=== PATIENT | male | born 1950 | race Caucasian/White ===

== ENCOUNTER 2017-03-23 16:57 | Inpatient (IN) | payer MEDICARE, MEDICAID ==
[2017-03-23 16:57] VITALS: BMI 25.8
--- NOTE | 2017-03-23 17:49 | ED PDOC ---
HPI: Chest Pain Time Seen by Provider: 03/23/17 17:10 Chief Complaint (Nursing): Chest Pain Chief Complaint (Provider): Chest pain History Per: Patient History/Exam Limitations: no limitations Onset/Duration Of Symptoms: Hrs (3x hours prior to arrival ) Current Symptoms Are (Timing): Better Severity: Moderate Associated Symptoms: Dyspnea. denies: Nausea Additional Complaint(s): 66 year old male presents to the ED with complaints of chest pain that started 3x hours prior to arrival. He reports that he was walking down the steps today and started feeling chest pain and shortness of breath. He reports that it is resolving upon arrival to the ED, but it is still present. He also reports having a subjective fever, but denies having a headache, cough, sore throat, abdominal pain, nausea, vomiting, and diarrhea. PMD: Marlon Moreira MD Past Medical History Reviewed: Historical Data, Nursing Documentation, Vital Signs Vital Signs: Last Vital Signs Temp 97.9 F 03/24/17 16:30 Pulse 55 L 03/24/17 17:26 Resp 18 03/24/17 16:30 BP 127/73 03/24/17 17:26 Pulse Ox 100 03/24/17 18:25 - Medical History PMH: HTN - Surgical History Surgical History: No Surg Hx - Family History Family History: States: Unknown Family Hx - Social History Current smoker - smoking cessation education provided: No Alcohol: Social Drugs: Denies - Immunization History Hx Tetanus Toxoid Vaccination: No Hx Influenza Vaccination: No Hx Pneumococcal Vaccination: No - Home Medications Home Medications: Ambulatory Orders Medication Instructions Recorded Aspirin [Adult Low Dose Aspirin EC] 81 mg PO DAILY 03/23/17 Cyanocobalamin (Vitamin B-12) 1,000 mcg PO DAILY 03/23/17 [B-12] Enalapril Maleate [Vasotec] 20 mg PO DAILY 03/23/17 Ezetimibe [Zetia] 10 mg PO DAILY 03/23/17 Lovastatin 40 mg PO HS 03/23/17 Metoprolol Tartrate [Lopressor] 50 mg PO BID 03/23/17 amLODIPine [Norvasc] 5 mg PO DAILY 03/23/17 - Allergies Allergies/Adverse Reactions: Allergies Allergy/AdvReac Type Severity Reaction Status Date / Time No Known Allergies Allergy Verified 03/23/17 17:03 Review of Systems ROS Statement: Except As Marked, All Systems Reviewed And Found Negative Constitutional: Positive for: Fever ENT: Negative for: Throat Pain Cardiovascular: Positive for: Chest Pain Respiratory: Positive for: Shortness of Breath. Negative for: Cough Gastrointestinal: Negative for: Nausea, Vomiting, Abdominal Pain, Diarrhea Neurological: Negative for: Headache Physical Exam - Reviewed Nursing Documentation Reviewed: Yes Vital Signs Reviewed: Yes - Physical Exam Appears: Positive for: Well, Non-toxic, No Acute Distress Head Exam: Positive for: ATRAUMATIC, NORMOCEPHALIC Skin: Positive for: Normal Color, Warm, Dry Neck: Positive for: Normal (no stiffness), Supple Cardiovascular/Chest: Positive for: Regular Rate, Rhythm Respiratory: Positive for: Normal Breath Sounds Gastrointestinal/Abdominal: Positive for: Normal Exam, Soft. Negative for: Tenderness Neurologic/Psych: Positive for: Alert, Oriented (3x) - Laboratory Results Result Diagrams: 03/24/17 05:25 03/24/17 05:25 - ECG Interpretation Of ECG: NSR @ 79, no ST-T changes. O2 Sat by Pulse Oximetry: 100 (RA) Pulse Ox Interpretation: Normal - Radiology X-Ray: Read By Radiologist X-Ray Interpretation: No Acute Disease - CT Scan/US CT chest Other Rad Studies (CT/US): Radiology Report Reviewed (No pulmonary embolus. No evidence of acute pulmonary disease. Mild cardiomegaly. ) Medical Decision Making Medical Decision Makin:10 Initial impression: 66 year old male patient with chest pain due to fever Initial plan: * VBG shock panel * EKG * CMP * troponin I * udip * CBC * DDimer coag * PTT * prothrombin time * XRay chest 2 views * tylenol 650mg PO * blood culture * urine culture * influenza AB * urinalysis * reevaluation Scribe Attestation: Documented by Taylor Ospina, acting as a scribe for Mari Mcfarlane MD. Provider Scribe Attestation: All medical record entries made by the Scribe were at my direction and personally dictated by me. I have reviewed the chart and agree that the record accurately reflects my personal performance of the history, physical exam, medical decision making, and the department course for this patient. I have also personally directed, reviewed, and agree with the discharge instructions and disposition. Disposition - Clinical Impression Clinical Impression: Chest pain, Fever of unknown origin - Disposition Disposition Time: 21:14 Condition: STABLE - Pt Status Changed To: Hospital Disposition Of: Inpatient - Admit Certification Admit to Inpatient:: After my assessment, the patient will require hospitalization for at least two midnights. This is because of the severity of symptoms shown, intensity of services needed, and/or the medical risk in this patient being treated as an outpatient. - POA Present On Arrival: None
[2017-03-23 18:07] LABS: BASO % 0.4 % (0.0-2.0); EOS # 0.1 K/uL (0.0-0.7); EOS % 0.9 % (0.0-4.0); HEMATOCRIT 35.2 % (35.0-51.0); LYMPH # 0.5 K/uL (1.0-4.3); MEAN CELL VOLUME 81.6 fl (80.0-94.0); MEAN CORPUSCULAR HEMOGLOBIN 27.8 pg (27.0-31.0); MEAN CORPUSCULAR HGB CONC 34.1 g/dL (33.0-37.0); MEAN PLATELET VOLUME 9.5 fl (7.2-11.7); MONO # 0.6 K/uL (0.0-0.8); MONO % 6.3 % (0.0-10.0); NEUT # 8.5 K/uL (1.8-7.0); NEUT % 87.4 % (50.0-75.0); PLATELET COUNT 193 K/uL (130-400); RED CELL DISTRIBUTION WIDTH 13.9 % (11.5-14.5); WHITE BLOOD COUNT 9.7 K/uL (4.8-10.8)
[2017-03-23 18:19] LABS: VENOUS BLOOD GAS BASE EXCESS 1.7 mmol/L (0.0-2.0); VENOUS BLOOD GAS PCO2 42 mmHg (40-60); VENOUS BLOOD PH 7.41 (7.32-7.43)
[2017-03-23 18:31] LABS: ALB/GLOB RATIO 1.2 (1.0-2.1); ALKALINE PHOSPHATASE 88 U/L (38-126); ALT/SGPT 50 U/L (21-72); AST/SGOT 43 U/L (17-59); BILIRUBIN,TOTAL 0.6 mg/dl (0.2-1.3); BLOOD UREA NITROGEN 16 mg/dl (9-20); CALCIUM 9.3 mg/dL (8.4-10.2); CARBON DIOXIDE 23 mmol/L (22-30); CHLORIDE 106 mmol/L (98-107); GFR AFRICAN-AMERICAN > 60; GLUCOSE,RANDOM 129 mg/dL (75-110); POTASSIUM 4.4 MMOL/L (3.6-5.0); SODIUM 141 mmol/l (132-148); TOTAL PROTEIN 7.8 G/DL (6.3-8.2)
[2017-03-23 18:35] LABS: RBC URINE 1 /hpf (0-3); URINE BACTERIA RARE (<OCC); URINE BILIRUBIN NEGATIVE (NEGATIVE); URINE BLOOD NEGATIVE (NEGATIVE); URINE COLOR YELLOW (YELLOW); URINE GLUCOSE (UA) NEG (Normal); URINE KETONE NEGATIVE (NEGATIVE); URINE LEUKOCYTE ESTERASE NEG Leu/uL (Negative); URINE PROTEIN NEGATIVE (NEGATIVE); URINE UROBILINOGEN 0.2-1.0 mg/dL (0.2-1.0); WBC URINE < 1 /hpf (0-5)
[2017-03-23] MEDS ORDERED: Iodixanol 320 MG/ML 100 ML BOTTLE IV ONE (19:20)
[2017-03-23] MEDS ORDERED: Sodium Chloride 0.9% 50 ML IV ONE (19:20)
[2017-03-23 20:16] LABS: EOSINOPHIL 1 % (0-7); NEUTROPHIL 82 % (42-75); REACTIVE LYMPHOCYTES 1 % (0-0); TOTAL CELLS COUNTED 100
[2017-03-23 20:18] LABS: LARGE PLATELETS PRESENT
--- NOTE | 2017-03-23 23:33 | CP.PCM.HP ---
History of Present Illness - History of Present Illness History of Present Illness: PCP: Marlon Moreira MD Chief Complaint: Chest Pain/SOB HPI: 66 years old male with hx of HLD, HTN and CAD s/p CABG comes to the ED with 3 Hours of sudden unset of chest pain while walking down the Stairs. The pain was dull, retrosternal, non radiating and associated with SOB. No relief with home medications, No nausea, Vomits , Diaphoresis, Headaches, cough, sore throat , muscular aches, abdominal pains, dysuria nor urinary frequencies. PMH: HTN, HLD, CAD with [place] PSH: CABG in 2013 SH: No smoking; Quit Alcohol; No illegal drug use; Live with family FH: Unknown Family Hx Allergies: NKDA Present on Admission - Present on Admission Any Indicators Present on Admission: No History of DVT/PE: No History of Uncontrolled Diabetes: No Urinary Catheter: No Decubitus Ulcer Present: No Review of Systems - Constitutional Constitutional: Fever. absent: Anorexia, Chills, Headache, Lethargy, Weakness - EENT Eyes: absent: Diplopia, Photophobia, Requires Corrective Lenses, Sees Flashes Ears: absent: Decreased Hearing, Ear Discharge, Ear Pain, Tinnitus Nose/Mouth/Throat: absent: Epistaxis, Nasal Congestion, Nasal Discharge, Nasal Obstruction, Sinus Pain, Sinus Pressure - Cardiovascular Cardiovascular: Chest Pain at Rest, Dyspnea. absent: Edema, Orthopnea - Respiratory Respiratory: absent: Cough, Dyspnea, Wheezing, Stridor - Gastrointestinal Gastrointestinal: absent: Abdominal Pain, Belching, Constipation, Diarrhea, Nausea, Vomiting - Genitourinary Genitourinary: absent: Dysuria, Flank Pain, Hematuria, Freq UTI - Musculoskeletal Musculoskeletal: absent: Arthralgias, Atrophy, Joint Swelling - Integumentary Integumentary: absent: Pruritus, Rash, Skin Ulcer, Sores, Striae, Swelling - Neurological Neurological: absent: Confusion, Headaches, Weakness - Psychiatric Psychiatric: absent: Anxiety, Depression, Panic Attacks - Endocrine Endocrine: absent: Palpitations, Polydipsia, Polyphagia, Polyuria - Hematologic/Lymphatic Hematologic: absent: Easy Bleeding, Easy Bruising Past Patient History - Past Social History Smoking Status: Never Smoked Chewing Tobacco Use: No Cigar Use: No Alcohol: Social Drugs: Denies Home Situation {Lives}: With Family - CARDIAC Hx Cardiac Disorders: Yes Hx Hypertension: Yes Other/Comment: CAD with LA - PULMONARY Hx Respiratory Disorders: No - NEUROLOGICAL Hx Neurological Disorder: No - HEENT Hx HEENT Problems: No - RENAL Hx Chronic Kidney Disease: No - ENDOCRINE/METABOLIC Hx Endocrine Disorders: No - HEMATOLOGICAL/ONCOLOGICAL Hx Blood Disorders: No - INTEGUMENTARY Hx Dermatological Problems: No - MUSCULOSKELETAL/RHEUMATOLOGICAL Hx Musculoskeletal Disorders: No - GASTROINTESTINAL Hx Gastrointestinal Disorders: No - GENITOURINARY/GYNECOLOGICAL Hx Genitourinary Disorders: No - PSYCHIATRIC Hx Psychophysiologic Disorder: No Hx Substance Use: No - SURGICAL HISTORY Hx Surgeries: Yes Hx Coronary Artery Bypass Graft: Yes Other/Comment: OPEN HEART SURGERY - ANESTHESIA Hx Anesthesia: Yes Hx Anesthesia Reactions: No Meds Allergies/Adverse Reactions: Allergies Allergy/AdvReac Type Severity Reaction Status Date / Time No Known Allergies Allergy Verified 03/23/17 17:03 Physical Exam - Constitutional Appears: No Acute Distress - Head Exam Head Exam: ATRAUMATIC, NORMAL INSPECTION, NORMOCEPHALIC - Eye Exam Eye Exam: EOMI, Normal appearance Pupil Exam: NORMAL ACCOMODATION, PERRL - ENT Exam ENT Exam: Mucous Membranes Moist, Normal Exam, Normal External Ear Exam, Normal Oropharynx - Neck Exam Neck exam: Positive for: Full Rom, Normal Inspection. Negative for: Lymphadenopathy, Tenderness - Respiratory Exam Respiratory Exam: Clear to Auscultation Bilateral. absent: Rales, Rhonchi, Wheezes - Cardiovascular Exam Cardiovascular Exam: REGULAR RHYTHM, RRR, +S1, +S2. absent: Gallop, JVD - GI/Abdominal Exam GI & Abdominal Exam: Normal Bowel Sounds, Soft. absent: Mass, Tenderness - Rectal Exam Rectal Exam: Deferred - Extremities Exam Extremities exam: Positive for: full ROM, normal inspection. Negative for: calf tenderness, joint swelling, pedal edema - Back Exam Back exam: NORMAL INSPECTION. absent: CVA tenderness (L), CVA tenderness (R) - Neurological Exam Neurological exam: CN II-XII Intact, Oriented x3, Reflexes Normal Additional comments: Slow mentation - Psychiatric Exam Psychiatric exam: Normal Affect, Normal Mood - Skin Skin Exam: Dry, Intact, Normal Color, Warm Results - Vital Signs Recent Vital Signs: Last Vital Signs Temp 98.1 F 03/23/17 22:40 Pulse 58 L 03/23/17 22:40 Resp 16 03/23/17 22:40 BP 110/78 03/23/17 22:40 Pulse Ox 98 03/23/17 22:40 - Labs Result Diagrams: 03/23/17 18:00 03/23/17 18:00 - Imaging and Cardiology CT scan - chest Status: Report reviewed by me Additional comment: FINDINGS: Pulmonary arteries: No pulmonary embolism. Aorta: No acute findings. No thoracic aortic aneurysm. Lungs: Atelectasis posterior lungs. No mass. Pleural space: Unremarkable. No significant effusion. No pneumothorax. Heart: Unremarkable. No cardiomegaly. No significant pericardial effusion. No evidence of RV dysfunction. Bones/joints: Median sternotomy. No acute fracture. No dislocation. Soft tissues: Unremarkable. Lymph nodes: Unremarkable. No enlarged lymph nodes. Liver: Cirrhotic liver. IMPRESSION: No pulmonary embolism Chest x-ray Status: Image reviewed by me Additional comment: No infiltrates - Sternotomy wires seen at mid chest. Assessment & Plan - Assessment and Plan (Free Text) Assessment: #. Chest pain #. Fever. #. Anemia #. CAD s/p CABG #. HLD Plan: 66 years old male with hx of HLD, HTN and CAD s/p CABG comes to the ED with 3 Hours of sudden unset of chest pain while walking down the Stairs. The pain was dull, retrosternal, non radiating and associated with SOB and subjected fever. #. Chest pain r/o ACS - Will need Cardiology consult - Serial Troponin - Serial EKG - NItro bid SL PRN - ASA/ Lovastatin/Zetia #. Fever etiology unclear - Follow Blood Cultures - If patient spikes a fever again, I will start Antibiotic therapy - No empiric antibiotic started at this time #. HTN: - controlled with Metoprolol/ Amlodipine/ Vasotec. - Follow BP #. Anemia - Follow Hb #. CAD s/p CABG - ASA/ Lovastatin #. DVT Prophylaxis with Lovenox #. Code Status: Full - Date & Time Date: 03/23/17 Time: 23:32
[2017-03-24] MEDS: Sodium Chloride 0.9% 1,000 ML IV SCH ×2 (01:15→20:37)
--- NOTE | 2017-03-24 06:58 | RAD ---
HISTORY: CP, fever COMPARISON: No prior. TECHNIQUE: Chest PA and lateral FINDINGS: LUNGS: No active pulmonary disease. PLEURA: No significant pleural effusion identified. No pneumothorax apparent. CARDIOVASCULAR: The cardiac silhouette is prominent in size. Patient status post sternotomy. OSSEOUS STRUCTURES: No significant abnormalities. VISUALIZED UPPER ABDOMEN: Normal. OTHER FINDINGS: None. IMPRESSION: No active disease.
[2017-03-24 07:13] LABS: BASO % 0.7 % (0.0-2.0); EOS # 0.1 K/uL (0.0-0.7); EOS % 0.8 % (0.0-4.0); HEMATOCRIT 34.8 % (35.0-51.0); LYMPH # 0.7 K/uL (1.0-4.3); LYMPH % 9.8 % (20.0-40.0); MEAN CELL VOLUME 80.8 fl (80.0-94.0); MEAN CORPUSCULAR HGB CONC 34.7 g/dL (33.0-37.0); MEAN PLATELET VOLUME 9.8 fl (7.2-11.7); MONO # 0.4 K/uL (0.0-0.8); MONO % 6.1 % (0.0-10.0); NEUT % 82.6 % (50.0-75.0); NRBC % 0.1 % (0.0-0.0); RED CELL DISTRIBUTION WIDTH 13.8 % (11.5-14.5); WHITE BLOOD COUNT 7.2 K/uL (4.8-10.8)
[2017-03-24 07:32] LABS: BLOOD UREA NITROGEN 13 mg/dl (9-20); CALCIUM 9.2 mg/dL (8.4-10.2); CARBON DIOXIDE 24 mmol/L (22-30); CHLORIDE 108 mmol/L (98-107); GFR AFRICAN-AMERICAN > 60; GLUCOSE,RANDOM 87 mg/dL (75-110); POTASSIUM 4.3 MMOL/L (3.6-5.0); SODIUM 141 mmol/l (132-148)
--- NOTE | 2017-03-24 07:43 | CT ---
PROCEDURE: CT Chest with contrast (Pulmonary Angiogram) HISTORY: CP, SOB COMPARISON: None available. TECHNIQUE: Axial computed tomography images were obtained of the chest in the pulmonary arterial phase of enhancement. Coronal and sagittal reformatted images were created and reviewed. Intravenous contrast dose: 100 mL Visipaque 320 Radiation dose: Total exam DLP = 381.96 mGy-cm. This CT exam was performed using one or more of the following dose reduction techniques: Automated exposure control, adjustment of the mA and/or kV according to patient size, and/or use of iterative reconstruction technique. FINDINGS: PULMONARY ARTERIES: Unremarkable. No pulmonary embolism. AORTA: No acute findings. No thoracic aortic aneurysm. LUNGS: No evidence of acute pulmonary disease. No nodule, mass or pulmonary consolidation. PLEURAL SPACES: Unremarkable. No effusion or pneuomothorax. HEART: Mild cardiomegaly is seen. No significant pericardial effusion. LYMPH NODES: No lymphadenopathy. BONES, CHEST WALL: Unremarkable. No fracture or destructive lesion OTHER FINDINGS: Mildly dilated distal esophagus. IMPRESSION: No pulmonary embolus. No evidence of acute pulmonary disease. Mild cardiomegaly. Preliminary report was submitted by [facility].
[2017-03-24] MEDS ORDERED: Patient's Own Med (Cyanocobalamin (Vitamin B-12) [B-12] 1,000 MCG) PO SCH (09:00)
[2017-03-24] MEDS: Enoxaparin 40 mg Syringe SC SCH (09:01)
[2017-03-24] MEDS ORDERED: ceFAZolin 2 GM in Sodium Chloride 0.9% 100 ML IVPB ONE (09:46)
--- NOTE | 2017-03-24 10:07 | CARD ---
APPROVED REPORT EKG Measurement Heart [id number] AR 150P0 [id number] <Conclusion> Normal sinus rhythm Inferior infarct, age undetermined Abnormal ECG
--- NOTE | 2017-03-24 10:15 | CARD ---
APPROVED REPORT EKG Measurement Heart [id number] CA 144P0 [id number] <Conclusion> Normal sinus rhythm Inferior infarct, age undetermined Abnormal ECG
--- NOTE | 2017-03-24 11:44 | CP.PCM.PN ---
Subjective - Date & Time of Evaluation Date of Evaluation: 03/31/17 Time of Evaluation: 10:30 - Subjective Subjective: Pt denies chest pain at present no SOB no cough no abd pain had fever on admission however none since, WBC ct normal and pt is asymptomatic , CT of chest did not show any infiltrate Urinalysis normal Objective - Vital Signs/Intake and Output Vital Signs (last 24 hours): Temp Pulse Resp BP Pulse Ox 98.6 F 62 18 114/67 97 03/24/17 08:13 03/24/17 09:05 03/24/17 08:13 03/24/17 09:05 03/24/17 08:13 - Medications Medications: Current Medications Amlodipine Besylate (Norvasc) 5 mg PO DAILY [facility] Last Admin: 03/24/17 09:02 Dose: 5 mg Aspirin (Ecotrin) 81 mg PO DAILY [facility] Last Admin: 03/24/17 09:00 Dose: 81 mg Atorvastatin Calcium (Lipitor) 10 mg PO [facility] Clopidogrel Bisulfate (Plavix) 75 mg PO DAILY [facility] Last Admin: 03/24/17 10:13 Dose: 75 mg Cyanocobalamin (Vitamin B12 1000 Mcg Tab) 1,000 mcg PO DAILY [facility] Last Admin: 03/24/17 09:03 Dose: 1,000 mcg Ezetimibe (Zetia) 10 mg PO DAILY [facility] Last Admin: 03/24/17 09:03 Dose: 10 mg Enalapril Maleate (Vasotec) 20 mg PO DAILY [facility] Last Admin: 03/24/17 09:03 Dose: 20 mg Enoxaparin Sodium (Lovenox) 40 mg SC DAILY [facility] PRN Reason: Protocol Last Admin: 03/24/17 09:01 Dose: 40 mg Sodium Chloride (Sodium Chloride 0.9%) 1,000 mls @ 100 mls/hr IV .Q10H [facility] Stop: 03/25/17 00:02 Last Admin: 03/24/17 01:15 Dose: 100 mls/hr Metoprolol Tartrate (Lopressor) 50 mg PO BID [facility] Last Admin: 03/24/17 09:05 Dose: 50 mg - Labs Labs: 03/24/17 05:25 03/24/17 05:25 PT 10.7 SECONDS (9.6-11.2) 03/23/17 18:00 INR 1.03 (0.92-1.08) 03/23/17 18:00 APTT 24.0 SECONDS (23.3-32.5) 03/23/17 18:00 - Constitutional Appears: No Acute Distress - Head Exam Head Exam: NORMAL INSPECTION, NORMOCEPHALIC - Eye Exam Eye Exam: EOMI, Normal appearance Pupil Exam: NORMAL ACCOMODATION - ENT Exam ENT Exam: Mucous Membranes Moist, Normal External Ear Exam - Neck Exam Neck Exam: Full ROM. absent: Meningismus - Respiratory Exam Respiratory Exam: NORMAL BREATHING PATTERN. absent: Respiratory Distress - Cardiovascular Exam Cardiovascular Exam: REGULAR RHYTHM, +S1, +S2 Additional comments: CP not reproducible - GI/Abdominal Exam GI & Abdominal Exam: Soft, Normal Bowel Sounds. absent: Tenderness - Extremities Exam Extremities Exam: Full ROM, Normal Capillary Refill. absent: Calf Tenderness, Pedal Edema - Back Exam Back Exam: Full ROM. absent: CVA tenderness (L), CVA tenderness (R), paraspinal tenderness, vertebral tenderness - Neurological Exam Neurological Exam: Alert, Awake, CN II-XII Intact, Normal Gait, Oriented x3 Neuro motor strength exam: Left Upper Extremity: 5, Right Upper Extremity: 5, Left Lower Extremity: 5, Right Lower Extremity: 5 - Psychiatric Exam Psychiatric exam: Normal Affect, Normal Mood - Skin Skin Exam: Dry, Normal Color, Warm Assessment and Plan - Assessment and Plan (Free Text) Assessment: 66 years old male with hx of HLD, HTN and CAD s/p CABG comes to the ED with 3 Hours of sudden onset of chest pain while walking down the stairs. The pain was dull, retrosternal, non radiating and associated with SOB 1. Chest pain r/o ACS - Cardiology consult: Dr Sampson - discussed case - given Nuclear stess test result : ( infarction without ischemia of inferior wall) - he rec Cardiac cath - plan for cath this afternoon - Serial Troponin x 3 neg - Serial EKG: noted T wave inversion II, II AVF, ? new change V5, V^ ( T inversion) - NItro bid SL PRN - cont ASA, BB, statin and JEFFREY 2. Questionable Fever - there was a documented fever - Pt is asymptomatic , no cough, no abd pain, no dysuiria, no diarrhea - normal WBC, CT of chest : no infiltrate, Flu negative, Urinalysis normal - Follow Blood Cultures - Since pt is going for cardiac cath - will empirically give a dose of Ancef 3. HTN: - controlled with Metoprolol/ Amlodipine/ Vasotec. - Follow BP 4. CAD s/p CABG ( 2013) #. DVT Prophylaxis with Lovenox #. Code Status: Full Surrogate decision maker : chelsea Blake
[2017-03-24] MEDS ORDERED: LOVASTATIN 40 MG PO SCH (22:00)
[2017-03-25 00:30] VITALS: RESP 20
[2017-03-25 07:24] LABS: BASO % 0.7 % (0.0-2.0); EOS # 0.2 K/uL (0.0-0.7); HEMATOCRIT 34.6 % (35.0-51.0); LYMPH # 0.9 K/uL (1.0-4.3); LYMPH % 14.7 % (20.0-40.0); MEAN CORPUSCULAR HEMOGLOBIN 27.7 pg (27.0-31.0); MEAN CORPUSCULAR HGB CONC 33.8 g/dL (33.0-37.0); MEAN PLATELET VOLUME 9.9 fl (7.2-11.7); MONO # 0.7 K/uL (0.0-0.8); NEUT # 4.2 K/uL (1.8-7.0); NEUT % 69.6 % (50.0-75.0); NRBC % 0.1 % (0.0-0.0); RED CELL DISTRIBUTION WIDTH 14.1 % (11.5-14.5)
[2017-03-25 07:28] LABS: ALB/GLOB RATIO 1.1 (1.0-2.1); ALKALINE PHOSPHATASE 78 U/L (38-126); ALT/SGPT 40 U/L (21-72); AST/SGOT 30 U/L (17-59); BILIRUBIN,TOTAL 0.5 mg/dl (0.2-1.3); BLOOD UREA NITROGEN 11 mg/dl (9-20); CALCIUM 8.7 mg/dL (8.4-10.2); CARBON DIOXIDE 25 mmol/L (22-30); CHLORIDE 107 mmol/L (98-107); CHOLESTEROL 136 mg/dL (0-199); GFR AFRICAN-AMERICAN > 60; GLUCOSE,RANDOM 98 mg/dL (75-110); POTASSIUM 4.1 MMOL/L (3.6-5.0); SODIUM 140 mmol/l (132-148); TOTAL PROTEIN 6.6 G/DL (6.3-8.2)
[2017-03-25 07:56] VITALS: TEMP 97.5; O2SAT 99
--- NOTE | 2017-03-25 09:05 | CP.PCM.DIS ---
Provider - Provider Date of Admission: 03/23/17 21:14 Attending physician: Manjinder Hendrix Primary care physician: Dr. Moreira Consults: interventional cardiology consult Time Spent in preparation of Discharge (in minutes): 15 Hospital Course - Lab Results Lab Results: Most Recent Lab Values WBC 6.0 K/uL (4.8-10.8) 03/25/17 05:30 RBC 4.22 Mil/uL (4.40-5.90) L 03/25/17 05:30 Hgb 11.7 g/dL (12.0-18.0) L 03/25/17 05:30 Hct 34.6 % (35.0-51.0) L 03/25/17 05:30 MCV 82.0 fl (80.0-94.0) 03/25/17 05:30 MCH 27.7 pg (27.0-31.0) 03/25/17 05:30 MCHC 33.8 g/dL (33.0-37.0) 03/25/17 05:30 RDW 14.1 % (11.5-14.5) 03/25/17 05:30 Plt Count 191 K/uL (130-400) 03/25/17 05:30 MPV 9.9 fl (7.2-11.7) 03/25/17 05:30 Neut % (Auto) 69.6 % (50.0-75.0) 03/25/17 05:30 Lymph % (Auto) 14.7 % (20.0-40.0) L 03/25/17 05:30 Kim[place] % (Auto) 12.0 % (0.0-10.0) H 03/25/17 05:30 Eos % (Auto) 3.0 % (0.0-4.0) 03/25/17 05:30 Baso % (Auto) 0.7 % (0.0-2.0) 03/25/17 05:30 Neut # 4.2 K/uL (1.8-7.0) 03/25/17 05:30 Lymph # 0.9 K/uL (1.0-4.3) L 03/25/17 05:30 Kimble # 0.7 K/uL (0.0-0.8) 03/25/17 05:30 Eos # 0.2 K/uL (0.0-0.7) 03/25/17 05:30 Baso # 0.0 K/uL (0.0-0.2) 03/25/17 05:30 Neutrophils % (Manual) 82 % (42-75) H 03/23/17 18:00 Band Neutrophils % 1 % (0-2) 03/23/17 18:00 Lymphocytes % (Manual) 7 % (20-50) L 03/23/17 18:00 Reactive Lymphs % 1 % (0-0) H 03/23/17 18:00 Monocytes % (Manual) 8 % (0-10) 03/23/17 18:00 Eosinophils % (Manual) 1 % (0-7) 03/23/17 18:00 Platelet Estimate Normal (NORMAL) 03/23/17 18:00 Large Platelets Present 03/23/17 18:00 Hypochromasia (manual) Slight 03/23/17 18:00 Anisocytosis (manual) Slight 03/23/17 18:00 Microcytosis (manual) Slight 03/23/17 18:00 PT 10.7 SECONDS (9.6-11.2) 03/23/17 18:00 INR 1.03 (0.92-1.08) 03/23/17 18:00 APTT 24.0 SECONDS (23.3-32.5) 03/23/17 18:00 D-Dimer, Quantitative 0.63 mg/L FEU (0-0.50) H 03/23/17 18:00 pO2 31 mm/Hg (30-55) 03/23/17 18:15 VBG pH 7.41 (7.32-7.43) 03/23/17 18:15 VBG pCO2 42 mmHg (40-60) 03/23/17 18:15 VBG HCO3 25.2 mmol/L 03/23/17 18:15 VBG Total CO2 27.9 mmol/L (22-28) 03/23/17 18:15 VBG O2 Sat (Calc) 68.1 % (40-65) H 03/23/17 18:15 VBG Base Excess 1.7 mmol/L (0.0-2.0) 03/23/17 18:15 VBG Potassium 4.4 mmol/L (3.6-5.2) 03/23/17 18:15 Sodium 140.0 mmol/L (132-148) 03/23/17 18:15 Chloride 110.0 mmol/L (98-107) H 03/23/17 18:15 Glucose 122 mg/dL (75-110) H 03/23/17 18:15 Lactate 1.6 mmol/L (0.7-2.1) 03/23/17 18:15 FiO2 21.0 % 03/23/17 18:15 Sodium 140 mmol/l (132-148) 03/25/17 05:30 Potassium 4.1 MMOL/L (3.6-5.0) 03/25/17 05:30 Chloride 107 mmol/L (98-107) 03/25/17 05:30 Carbon Dioxide 25 mmol/L (22-30) 03/25/17 05:30 Anion Gap 12 (10-20) 03/25/17 05:30 BUN 11 mg/dl (9-20) 03/25/17 05:30 Creatinine 1.2 mg/dL (0.8-1.5) 03/25/17 05:30 Est GFR ( Amer) > 60 03/25/17 05:30 Est GFR (Non-Af Amer) > 60 03/25/17 05:30 Random Glucose 98 mg/dL (75-110) 03/25/17 05:30 Calcium 8.7 mg/dL (8.4-10.2) 03/25/17 05:30 Total Bilirubin 0.5 mg/dl (0.2-1.3) 03/25/17 05:30 AST 30 U/L (17-59) 03/25/17 05:30 ALT 40 U/L (21-72) 03/25/17 05:30 Alkaline Phosphatase 78 U/L (38-126) 03/25/17 05:30 Troponin I 0.0130 ng/mL (0.00-0.120) 03/24/17 09:40 Total Protein 6.6 G/DL (6.3-8.2) 03/25/17 05:30 Albumin 3.4 g/dL (3.5-5.0) L 03/25/17 05:30 Globulin 3.2 gm/dL (2.2-3.9) 03/25/17 05:30 Albumin/Globulin Ratio 1.1 (1.0-2.1) 03/25/17 05:30 Triglycerides 88 mg/DL (0-149) 03/25/17 05:30 Cholesterol 136 mg/dL (0-199) 03/25/17 05:30 LDL Cholesterol Direct 67 mg/dL (0-129) 03/25/17 05:30 HDL Cholesterol 42 MG/DL (30-70) 03/25/17 05:30 Procalcitonin 0.62 NG/ML (0.19-0.49) H 03/24/17 05:25 Venous Blood Potassium 4.4 mmol/L (3.6-5.2) 03/23/17 18:15 Urine Color Yellow (YELLOW) 03/23/17 18:28 Urine Clarity Clear (Clear) 03/23/17 18:28 Urine pH 7.0 (5.0-8.0) 03/23/17 18:28 Ur Specific [place] 1.013 (1.003-1.030) 03/23/17 18:28 Urine Protein Negative mg/dL (NEGATIVE) 03/23/17 18:28 Urine Glucose (UA) Neg mg/dL (Normal) 03/23/17 18:28 Urine Ketones Negative mg/dL (NEGATIVE) 03/23/17 18:28 Urine Blood Negative (NEGATIVE) 03/23/17 18:28 Urine Nitrate Negative (NEGATIVE) 03/23/17 18:28 Urine Bilirubin Negative (NEGATIVE) 03/23/17 18:28 Urine Urobilinogen 0.2-1.0 mg/dL (0.2-1.0) 03/23/17 18:28 Ur Leukocyte Esterase Neg [place]/uL (Negative) 03/23/17 18:28 Urine RBC (Auto) 1 /hpf (0-3) 03/23/17 18:28 Urine Microscopic WBC < 1 /hpf (0-5) 03/23/17 18:28 Urine Bacteria Rare (<OCC) 03/23/17 18:28 Influenza Typ A,B (EIA) Negative for flu a/b (NEGATIVE) 03/23/17 18:00 - Hospital Course Hospital Course: 66 years old male with hx of HLD, HTN and CAD s/p CABG comes to the ED with 3 Hours of sudden onset of chest pain while walking down the stairs. The pain was dull, retrosternal, non radiating and associated with SOB. Intervention riveter pneumatic Dr. Sampson was consulted and patient taken for cardiac cath . Cardiac cath showed no stenosis. ACs ruled out. will discharge patient home on same [facility] e meds and follow up with his PMD. Dr. Winter as scheduled 1. Chest pain --- ACS ruled out Cardiology consult: Dr Sampson. Given Nuclear stress test results : ( infarction without ischemia of inferior wall) - he recommended Cardiac cath that showed no stenosis cont ASA, BB, statin and JEFFREY 2. Questionable Fever there was a documented fever in ER but patient did not have any other fever epsiodes during admissiion, normal WBC Pt is asymptomatic , no cough, no abd pain, no dysuiria, no diarrhea normal WBC, CT of chest showed no infiltrate, Flu negative, Urinalysis normal Blood Cultures with no growth Since pt went for for cardiac cath empirically was given a dose of Ancef No need for any further antibiotics 3. HTN: controlled with Metoprolol/ Amlodipine/ Vasotec. 4. CAD s/p CABG ( 2013) contine ASa, statin, BB, ACEi 5. DVT Prophylaxis with Lovenox Discharge Exam - Head Exam Head Exam: ATRAUMATIC, NORMAL INSPECTION, NORMOCEPHALIC - Eye Exam Eye Exam: EOMI, Normal appearance, PERRL Pupil Exam: NORMAL ACCOMODATION - ENT Exam ENT Exam: Mucous Membranes Moist, Normal Exam - Neck Exam Neck exam: Full Rom, Normal Inspection - Respiratory Exam Respiratory Exam: Clear to PA & Lateral, NORMAL BREATHING PATTERN. absent: Rales, Rhonchi, Wheezes - Cardiovascular Exam Cardiovascular Exam: REGULAR RHYTHM, RRR, +S1, +S2. absent: JVD - GI/Abdominal Exam GI & Abdominal Exam: Normal Bowel Sounds, Soft, Unremarkable. absent: Distended , Guarding, Tenderness - Rectal Exam Rectal Exam: Deferred - Extremities Exam Extremities exam: normal capillary refill, normal inspection, pedal pulses present - Back Exam Back exam: NORMAL INSPECTION - Neurological Exam Neurological exam: Alert, CN II-XII Intact, Oriented x3, Reflexes Normal - Psychiatric Exam Psychiatric exam: Normal Affect, Normal Mood - Skin Skin Exam: Dry, Intact, Normal Color, Warm Discharge Plan - Follow Up Plan Condition: STABLE Disposition: HOME/ ROUTINE Patient education suggested?: Yes Instructions: Angina (DC) Referrals: Marlon Moreira MD [Staff Provider] - Bernarda Sampson MD [Staff Provider] -
[2017-03-25 09:15] VITALS: BP 102/65; PULSE 52
[2017-03-25] MEDS: Enoxaparin 40 mg Syringe SC SCH (09:15)
[2017-03-25] MEDS ORDERED: ceFAZolin 2 GM in Sodium Chloride 0.9% 100 ML IVPB SCH (18:00)
== END 2017-03-25 12:35 | disposition home or self-care (01) | DRG 287 ==
LOC: H.ER 16:57 → H.ERHOLD 21:14 → H.TEL 23:49
PROVIDERS: ADMIT Internal Medicine; ATTEND Internal Medicine
PROC: B205YZZ Plain Radiography of Left Heart using Other Contrast (ICD-10-PCS; principal; 2017-03-24)
PROC: B203YZZ Plain Radiography of Multiple Coronary Artery Bypass Grafts using Other Contrast (ICD-10-PCS; 2017-03-24)
PROC: B208YZZ Plain Radiography of Left Internal Mammary Bypass Graft using Other Contrast (ICD-10-PCS; 2017-03-24)
PROC: B201YZZ Plain Radiography of Multiple Coronary Arteries using Other Contrast (ICD-10-PCS; 2017-03-24)
DX: I25.10 Atherosclerotic heart disease of native coronary artery without angina pectoris (principal); I25.82 Chronic total occlusion of coronary artery; T82.855A Stenosis of coronary artery stent, initial encounter; D64.9 Anemia, unspecified; E78.5 Hyperlipidemia, unspecified; I10 Essential (primary) hypertension; I25.2 Old myocardial infarction; E78.00 Pure hypercholesterolemia, unspecified; Y84.0 Cardiac catheterization as the cause of abnormal reaction of the patient, or of later complication, without mention of misadventure at the time of the procedure; R50.9 Fever, unspecified

== ENCOUNTER 2017-04-07 14:40 | Emergency (ER) | payer MEDICARE, MEDICAID ==
[2017-03-24 14:56] VITALS: BMI 24.3
== END 2017-04-07 16:25 | disposition home or self-care (01) ==
LOC: H.ER 14:40
DX: K56.41 Fecal impaction (principal)

== ENCOUNTER 2018-07-27 17:51 | Observation (INO) | payer MEDICARE, MEDICAID ==
[2018-07-27 17:52] VITALS: BMI 24.3
--- NOTE | 2018-07-27 19:03 | ED PDOC ---
Syncope/Near Syncope/Dizziness Time Seen by Provider: 07/27/18 18:06 Chief Complaint (Nursing): Syncope Chief Complaint (Provider): Syncopal episode History Per: Patient History/Exam Limitations: no limitations Onset/Duration Of Symptoms: Mins Current Symptoms Are (Timing): Gone Now Number Of Syncopal Episodes: 1 Activity At Onset Of Symptoms: Walking Seizure Or Post-ictal Symptoms: None Additional History Per: Patient Additional Complaint(s): 68yo male, history of hypertension, possible AFib (? diagnosis) comes to ER s/p a syncopal episode prior to arrival. Patient reports he felt dizzy and immediately fainted, hitting the left side of face. Patient was alert on his own and was able to stand up wth assistance. Patient denies any dizziness, headache, weakness or numbness. Denies any nausea, vomiting, chest pain, neck apin or shortness of breath. Patient is compliant with medications and routinely follows up with [facility]. Patient denies any allergies. Medications: Emetimib, Enalapril, Amlodopine, Metoprolol PMD: Dr. Sampson [place] Past Medical History Reviewed: Historical Data, Nursing Documentation, Vital Signs Vital Signs: Last Vital Signs Temp 98.7 F 07/27/18 17:55 Pulse 55 L 07/27/18 17:55 Resp 20 07/27/18 17:55 BP 120/65 07/27/18 17:55 Pulse Ox 100 07/27/18 17:55 - Medical History PMH: Atrial Fibrillation (?; unclear of diagnosis), HTN, Hypercholesterolemia Denies: Chronic Kidney Disease - Surgical History Surgical History: CABG - Family History Family History: States: Unknown Family Hx - Immunization History Hx Tetanus Toxoid Vaccination: No Hx Influenza Vaccination: No Hx Pneumococcal Vaccination: No - Home Medications Home Medications: Ambulatory Orders Medication Instructions Recorded Aspirin [Adult Low Dose Aspirin EC] 81 mg PO DAILY 03/23/17 Cyanocobalamin (Vitamin B-12) 1,000 mcg PO DAILY 03/23/17 [B-12] Enalapril Maleate [Vasotec] 20 mg PO DAILY 03/23/17 Ezetimibe [Zetia] 10 mg PO DAILY 03/23/17 Lovastatin 40 mg PO HS 03/23/17 Metoprolol Tartrate [Lopressor] 50 mg PO BID 03/23/17 amLODIPine [Norvasc] 5 mg PO DAILY 03/23/17 - Allergies Allergies/Adverse Reactions: Allergies Allergy/AdvReac Type Severity Reaction Status Date / Time No Known Allergies Allergy Verified 07/27/18 17:55 Review of Systems ROS Statement: Except As Marked, All Systems Reviewed And Found Negative Cardiovascular: Negative for: Chest Pain Respiratory: Negative for: Shortness of Breath Gastrointestinal: Negative for: Vomiting Neurological: Positive for: Other (syncopal episode; left sided head injury). Negative for: Weakness, Numbness, Headache Physical Exam - Reviewed Nursing Documentation Reviewed: Yes Vital Signs Reviewed: Yes - Physical Exam Appears: Positive for: Non-toxic, No Acute Distress Head Exam: Positive for: NORMAL INSPECTION, NORMOCEPHALIC. Negative for: ATRAUMATIC (+ 1.5cm linear laceration superficial right cheek; well approximated on own. Mild tenderness to left zygoma.) Skin: Positive for: Normal Color, Warm, DRY Eye Exam: Positive for: EOMI, Normal appearance, PERRL ENT: Positive for: Normal ENT Inspection, TM Is/Are (clear; no hemotympanum) Neck: Positive for: Normal, Painless ROM, Supple Cardiovascular/Chest: Positive for: Regular Rate, Rhythm Respiratory: Positive for: CNT, Normal Breath Sounds Gastrointestinal/Abdominal: Positive for: Normal Exam, Soft Back: Positive for: Normal Inspection Extremity: Positive for: Normal ROM Neurologic/Psych: Positive for: Alert, yarn salvager II-XII (intact), Oriented, Gait ( stable). Negative for: Motor/Sensory Deficits, Aphasia, Facial Droop - ECG O2 Sat by Pulse Oximetry: 100 (RA) Pulse Ox Interpretation: Normal Medical Decision Making Medical Decision Making: A&P: Workup for syncope; cardiac vs. neurological etiology. Workup for traumatic injury due to fall CT Head w/o contrast CT C-Spine w/o contrast CT Maxillofacial w/o contrast Patient refusing sutures at this moment; wound irrigated, cleaned and covered with steri-strips. Time: 1899 Patient signed out to Dr. Garcia pending CT studied. Scribe Attestation: Documented by Daysi Preea, acting as a scribe for Taylor Trujillo MD Provider Scribe Attestation: All medical record entries made by the Scribe were at my direction and personally dictated by me. I have reviewed the chart and agree that the record accurately reflects my personal performance of the history, physical exam, medical decision making, and the department course for this patient. I have also personally directed, reviewed, and agree with the discharge instructions and disposition. Disposition - Patient ED Disposition Is Patient to be Admitted: Transfer of Care - Disposition Disposition: Transfer of Care Disposition Time: 19:00 Condition: STABLE Forms: [employer] ([place]) Connect (Greenlandic) Patient Signed Over To: Art Garcia
[2018-07-27 19:05] LABS: BASO % 0.4 % (0.0-2.0); EOS % 0.3 % (0.0-4.0); HEMOGLOBIN 10.7 g/dL (12.0-18.0); LYMPH # 1.1 K/uL (1.0-4.3); LYMPH % 10.2 % (20.0-40.0); MEAN CELL VOLUME 83.4 fl (80.0-94.0); MEAN CORPUSCULAR HEMOGLOBIN 28.5 pg (27.0-31.0); MEAN CORPUSCULAR HGB CONC 34.1 g/dL (33.0-37.0); MEAN PLATELET VOLUME 9.1 fl (7.2-11.7); MONO # 0.9 K/uL (0.0-0.8); MONO % 8.5 % (0.0-10.0); NEUT # 8.5 K/uL (1.8-7.0); NEUT % 80.6 % (50.0-75.0); RBC 3.75 Mil/uL (4.40-5.90); RED CELL DISTRIBUTION WIDTH 13.4 % (11.5-14.5); WHITE BLOOD COUNT 10.6 K/uL (4.8-10.8)
[2018-07-27 19:09] LABS: INR 1.2
[2018-07-27 19:12] LABS: PARTIAL THROMBOPLASTIN TIME 25.4 Seconds (25.6-37.1)
[2018-07-27 19:12] LABS: VENOUS BLOOD GAS BASE EXCESS -0.8 mmol/L (0.0-2.0); VENOUS BLOOD GAS PCO2 44 mmHg (40-60); VENOUS BLOOD GAS PO2 19 mm/Hg (30-55); VENOUS BLOOD PH 7.36 (7.32-7.43)
[2018-07-27 19:14] LABS: ALB/GLOB RATIO 1.2 (1.0-2.1); ALBUMIN 4.2 g/dL (3.5-5.0); ALT/SGPT 47 U/L (21-72); AST/SGOT 34 U/L (17-59); BLOOD UREA NITROGEN 17 mg/dl (9-20); CALCIUM 9.4 mg/dL (8.4-10.2); GFR NON-AFRICAN AMERICAN 43
[2018-07-27 19:32] LABS: B-TYPE NATRIURETIC PEPTIDE 352 pg/ml (0-900)
[2018-07-27 19:37] LABS: SQUAMOUS EPITHIAL < 1 /hpf (0-5); URINE BILIRUBIN NEGATIVE (NEGATIVE); URINE BLOOD NEGATIVE (NEGATIVE); URINE CLARITY CLEAR (Clear); URINE COLOR YELLOW (YELLOW); URINE GLUCOSE (UA) NEG (Normal); URINE LEUKOCYTE ESTERASE NEG Leu/uL (Negative); URINE PROTEIN NEGATIVE (NEGATIVE); URINE UROBILINOGEN 0.2-1.0 mg/dL (0.2-1.0)
--- NOTE | 2018-07-27 19:46 | ED PDOC ---
- Laboratory Results Result Diagrams: 07/27/18 19:01 07/27/18 19:01 - ECG O2 Sat by Pulse Oximetry: 100 (RA) Pulse Ox Interpretation: Normal Medical Decision Making Medical Decision Making: Time: 1899 68yo male, comes to ER for evaluation s/p syncopal episode and head injury. Patient signed out to me by Dr. Trujillo pending CT studies. Time: 1947 CT Head FINDINGS: BRAIN: Involutional changes. Periventricular hypoattenuation suggestive of chronic ischemic changes. Ex vacuo dilatation of the anterior horn right lateral ventricle. No hemorrhage. VENTRICLES: See above. BONES/JOINTS: Unremarkable. No acute fracture. SOFT TISSUES: Unremarkable. SINUSES: Left maxillary sinusitis. MASTOID AIR CELLS: Left mastoid and middle ear fluid. IMPRESSION: 1. Involutional changes. Periventricular hypoattenuation suggestive of chronic ischemic changes. Ex vacuo dilatation of the anterior horn right lateral ventricle. 2. Left maxillary sinusitis. 3. Left mastoid and middle ear fluid. Time: 2008 CT C-Spine FINDINGS: VERTEBRAE: No acute fracture. DISCS/SPINAL CANAL/NEURAL FORAMINA: Straightening of the cervical spine with degenerative changes through the cervical spine. SOFT TISSUES: Unremarkable. VASCULATURE: Atherosclerosis. MASTOID AIR CELLS: Left mastoid and middle ear fluid. LUNG APICES: Unremarkable as visualized. IMPRESSION: 1. Straightening of the cervical spine with degenerative changes through the cervical spine. 2. Left mastoid and middle ear fluid. Time: 2014 CT Maxillofacial FINDINGS: BONES/JOINTS: Left maxillary sinus mucosal thickening and fluid level with mixed attenuation. No definite displaced fracture. SOFT TISSUES: Unremarkable. ORBITS: Unremarkable. SINUSES:See above MASTOID AIR CELLS: Left mastoid and middle ear fluid. IMPRESSION: 1. Left maxillary sinus mucosal thickening and fluid level with mixed attenuation. No definite displaced fracture. 2. Left mastoid and middle ear fluid. Time: 2017 Patient reports PMD is Dr. Moreira. Patient to be admitted under Dr. Hendrix, hospitalist covering his patients, due to syncope and relative hypotension with cardiac history. SBP's in 80s. Fluids ordered Scribe Attestation: Documented by Daysi Perea, acting as a scribe for Art Garcia MD. Provider Scribe Attestation: All medical record entries made by the Scribe were at my direction and personally dictated by me. I have reviewed the chart and agree that the record accurately reflects my personal performance of the history, physical exam, medical decision making, and the department course for this patient. I have also personally directed, reviewed, and agree with the discharge instructions and disposition. Disposition - Clinical Impression Clinical Impression: Syncope - POA Present On Arrival: None - Disposition Disposition: Hospitalized as Observation Patient Disposition Time: 20:18 Condition: FAIR
[2018-07-27] MEDS: Sodium Chloride 0.9% 1,000 ML IV SCH (20:33)
--- NOTE | 2018-07-27 20:44 | CP.PCM.HP ---
History of Present Illness - History of Present Illness History of Present Illness: PMD: Dr Marlon Moreira Chief Complaint: Syncope The patient was seen and examined in the ED with family member present HPI: The hx is obtained from the patent and after review of the medical records. This is a 68 years old male with hx of HTN, CAD s/p CAGB who was brought to the ED because of a syncopal episode. He referred that on getting out of the bathroom, he fell suddenly hitting the left face and the left shoulder. He was unconscious for a few minutes. He denies stumbling, dizziness, nausea, vomits, urine incontinence, fever SOB and chest pain. He refused suturing to the left face laceration. PMH: HTN; HLD; CAD s/p MS PSH: CABG 6 years ago SH: No smoking; Quit Alcohol many years ago; No illegal drug use FH: State: No known family hx Allergies: NKDA Medication: Reviewed Present on Admission - Present on Admission Any Indicators Present on Admission: No History of DVT/PE: No History of Uncontrolled Diabetes: No Urinary Catheter: No Decubitus Ulcer Present: No Review of Systems - Constitutional Constitutional: absent: Anorexia, Chills, Fatigue, Fever - EENT Eyes: Requires Corrective Lenses. absent: Blurred Vision, Diplopia, Exophthalmos, Floaters Ears: absent: Decreased Hearing, Ear Discharge, Tinnitus Nose/Mouth/Throat: absent: Epistaxis, Nasal Congestion, Nasal Discharge, Sinus Pain, Sinus Pressure - Cardiovascular Cardiovascular: absent: Chest Pain, Dyspnea, Edema, Lightheadedness, Palpitations - Respiratory Respiratory: absent: Cough, Dyspnea, Wheezing, Stridor - Gastrointestinal Gastrointestinal: Abdominal Pain, Constipation. absent: Diarrhea, Nausea, Vomiting - Musculoskeletal Musculoskeletal: Arthralgias. absent: Back Pain - Integumentary Integumentary: absent: Dry Skin, Pruritus, Rash, Skin Ulcer, Sores, Striae, Swelling - Neurological Neurological: absent: Confusion, Focal Weakness, Loss of Vision, Weakness - Psychiatric Psychiatric: absent: Anxiety, Depression, Panic Attacks - Endocrine Endocrine: absent: Palpitations, Polydipsia, Polyphagia, Polyuria - Hematologic/Lymphatic Hematologic: absent: Easy Bleeding, Easy Bruising Past Patient History - Past Medical History & Family History Past Medical History?: Yes - Past Social History Smoking Status: Never Smoked Chewing Tobacco Use: No Cigar Use: No Alcohol: None Home Situation {Lives}: With Family - CARDIAC Hx Atrial Fibrillation: Yes (?; unclear of diagnosis) Hx Hypercholesterolemia: Yes Hx Hypertension: Yes - PULMONARY Hx Respiratory Disorders: No - NEUROLOGICAL Hx Neurological Disorder: No - HEENT Hx HEENT Problems: No - RENAL Hx Chronic Kidney Disease: No - ENDOCRINE/METABOLIC Hx Endocrine Disorders: No - HEMATOLOGICAL/ONCOLOGICAL Hx Blood Disorders: No - INTEGUMENTARY Hx Dermatological Problems: No - MUSCULOSKELETAL/RHEUMATOLOGICAL Hx Musculoskeletal Disorders: No - GASTROINTESTINAL Hx Gastrointestinal Disorders: No - GENITOURINARY/GYNECOLOGICAL Hx Genitourinary Disorders: No - PSYCHIATRIC Hx Psychophysiologic Disorder: No Hx Substance Use: No - SURGICAL HISTORY Hx Coronary Artery Bypass Graft: Yes - ANESTHESIA Hx Anesthesia: Yes Hx Anesthesia Reactions: No Meds Allergies/Adverse Reactions: Allergies Allergy/AdvReac Type Severity Reaction Status Date / Time No Known Allergies Allergy Verified 07/27/18 17:55 Physical Exam - Constitutional Appears: No Acute Distress - Head Exam Head Exam: ATRAUMATIC, NORMAL INSPECTION, NORMOCEPHALIC Additional comments: Left face with laceration 1Cm covered with Steril strip - Eye Exam Eye Exam: EOMI, Normal appearance Pupil Exam: NORMAL ACCOMODATION, PERRL - ENT Exam ENT Exam: Mucous Membranes Dry, Normal Exam, Normal External Ear Exam - Neck Exam Neck exam: Positive for: Full Rom, Normal Inspection. Negative for: Lymphadenopathy, Tenderness - Respiratory Exam Respiratory Exam: Clear to Auscultation Bilateral. absent: Rales, Rhonchi, Wheezes - Cardiovascular Exam Cardiovascular Exam: REGULAR RHYTHM, RRR, +S1, +S2 - GI/Abdominal Exam GI & Abdominal Exam: Normal Bowel Sounds, Soft. absent: Mass, Organomegaly, Tenderness - Rectal Exam Rectal Exam: Deferred - Extremities Exam Extremities exam: Positive for: full ROM, normal inspection - Back Exam Back exam: NORMAL INSPECTION. absent: CVA tenderness (L), CVA tenderness (R) - Neurological Exam Neurological exam: Alert, CN II-XII Intact, Oriented x3, Reflexes Normal - Psychiatric Exam Psychiatric exam: Normal Affect, Normal Mood - Skin Skin Exam: Dry, Intact, Normal Color, Warm Results - Vital Signs Recent Vital Signs: Last Vital Signs Temp 98.7 F 07/27/18 17:55 Pulse 55 L 07/27/18 17:55 Resp 20 07/27/18 17:55 BP 120/65 07/27/18 17:55 Pulse Ox 100 07/27/18 20:30 - Labs Result Diagrams: 07/27/18 19:01 07/27/18 19:01 Labs: Laboratory Results - last 24 hr 07/27/18 07/27/18 07/27/18 19:01 19:01 19:01 WBC 10.6 D RBC 3.75 L Hgb 10.7 L Hct 31.2 L MCV 83.4 MCH 28.5 MCHC 34.1 RDW 13.4 Plt Count 231 MPV 9.1 Neut % (Auto) 80.6 H Lymph % (Auto) 10.2 L [place] % (Auto) 8.5 Eos % (Auto) 0.3 Baso % (Auto) 0.4 Neut # (Auto) 8.5 H Lymph # (Auto) 1.1 [place] # (Auto) 0.9 H Eos # (Auto) 0.0 Baso # (Auto) 0.0 PT 13.0 INR 1.2 APTT 25.4 L pO2 VBG pH VBG pCO2 VBG HCO3 VBG Total CO2 VBG O2 Sat (Calc) VBG Base Excess VBG Potassium Glucose Lactate FiO2 Sodium 141 Potassium 5.7 H Chloride 109 H Carbon Dioxide 24 Anion Gap 14 BUN 17 Creatinine 1.6 H Est GFR ( Amer) 52 Est GFR (Non-Af Amer) 43 Random Glucose 106 Calcium 9.4 Total Bilirubin 0.7 AST 34 ALT 47 Alkaline Phosphatase 179 H Troponin I < 0.0120 NT-Pro-B Natriuret Pep 352 Total Protein 7.6 Albumin 4.2 Globulin 3.4 Albumin/Globulin Ratio 1.2 Venous Blood Potassium Urine Color Urine Clarity Urine pH Ur Specific [place] Urine Protein Urine Glucose (UA) Urine Ketones Urine Blood Urine Nitrate Urine Bilirubin Urine Urobilinogen Ur Leukocyte Esterase Urine RBC (Auto) Urine Microscopic WBC Ur Squamous Epith Cells Hyaline Casts 07/27/18 07/27/18 19:08 19:09 WBC RBC Hgb Hct MCV MCH MCHC RDW Plt Count MPV Neut % (Auto) Lymph % (Auto) [place] % (Auto) Eos % (Auto) Baso % (Auto) Neut # (Auto) Lymph # (Auto) [place] # (Auto) Eos # (Auto) Baso # (Auto) PT INR APTT pO2 19 L VBG pH 7.36 VBG pCO2 44 VBG HCO3 22.4 VBG Total CO2 26.3 VBG O2 Sat (Calc) 36.0 L VBG Base Excess -0.8 L VBG Potassium 5.5 H Glucose 106 Lactate 1.0 FiO2 21.0 Sodium 138.0 Potassium Chloride 108.0 H Carbon Dioxide Anion Gap BUN Creatinine Est GFR ( Amer) Est GFR (Non-Af Amer) Random Glucose Calcium Total Bilirubin AST ALT Alkaline Phosphatase Troponin I NT-Pro-B Natriuret Pep Total Protein Albumin Globulin Albumin/Globulin Ratio Venous Blood Potassium 5.5 H Urine Color Yellow Urine Clarity Clear Urine pH 6.0 Ur Specific [place] 1.013 Urine Protein Negative Urine Glucose (UA) Neg Urine Ketones Negative Urine Blood Negative Urine Nitrate Negative Urine Bilirubin Negative Urine Urobilinogen 0.2-1.0 Ur Leukocyte Esterase Neg Urine RBC (Auto) 2 Urine Microscopic WBC < 1 Ur Squamous Epith Cells < 1 Hyaline Casts 11-20 H - Impressions Impression: Sinus Bradycardia 56/min - Imaging and Cardiology CT scan - head Status: Image reviewed by me, Report reviewed by me Additional comment: EXAM: CT Head Without Intravenous Contrast EXAM DATE/TIME: Examination ordered 07/27/2018 6:43 PM. Image number total count reviewed 276 FINDINGS: BRAIN: Involutional changes. Periventricular hypoattenuation suggestive of chronic ischemic changes. Ex vacuo dilatation of the anterior horn right lateral ventricle. No hemorrhage. VENTRICLES: See above. BONES/JOINTS: Unremarkable. No acute fracture. SOFT TISSUES: Unremarkable. SINUSES: Left maxillary sinusitis. MASTOID AIR CELLS: Left mastoid and middle ear fluid. IMPRESSION: 1. Involutional changes. Periventricular hypoattenuation suggestive of chronic ischemic changes. Ex vacuo dilatation of the anterior horn right lateral ventricle. 2. Left maxillary sinusitis. 3. Left mastoid and middle ear fluid. CT MaxilloFacial Status: Report reviewed by me Additional comment: EXAM: CT Maxillofacial Without Intravenous Contrast EXAM DATE/TIME: Examination ordered 07/27/2018 6:56 PM. Image number total count reviewed 605 FINDINGS: BONES/JOINTS: Left maxillary sinus mucosal thickening and fluid level with mixed attenuation. No definite displaced fracture. SOFT TISSUES: Unremarkable. ORBITS: Unremarkable. SINUSES:See above MASTOID AIR CELLS: Left mastoid and middle ear fluid. IMPRESSION: 1. Left maxillary sinus mucosal thickening and fluid level with mixed attenuation. No definite displaced fracture. 2. Left mastoid and middle ear fluid. CT Cervical Spine Status: Report reviewed by me Additional comment: EXAM: CT Cervical Spine Without Intravenous Contrast EXAM DATE/TIME: Examination ordered 07/27/2018 6:53 PM. Image number total count reviewed 716 FINDINGS: VERTEBRAE: No acute fracture. DISCS/SPINAL CANAL/NEURAL FORAMINA: Straightening of the cervical spine with degenerative changes through the cervical spine. SOFT TISSUES: Unremarkable. VASCULATURE: Atherosclerosis. MASTOID AIR CELLS: Left mastoid and middle ear fluid. LUNG APICES: Unremarkable as visualized. IMPRESSION: 1. Straightening of the cervical spine with degenerative changes through the cervical spine. 2. Left mastoid and middle ear fluid. Assessment & Plan - Assessment and Plan (Free Text) Assessment: #. Syncopy #. Anemia #. Hyperkalemia #. HTN #.CAD #. Azotemia Plan: 68 years old male with hx of HTN, CAD s/p CAGB who was brought to the ED because of a syncopal episode. He fell suddenly hitting the left face and the left shoulder. He was unconscious for a few minutes. #. Syncope, probably vasovagal vs Dysarrhythmia - Telemetry monitoring - Orhtostatic measurements of Blood pressure and Heart rate #. Anemia - Vitamin B12 levels - folate - Iron Panel - Follow Hb #. Hyperkalemia due to crush injury - Kayexalate - Follow Electrolytes #. HTN - Norvasc/Lopressor/vasotec with parameters #.CAD - ASA/ Lovastatin #. Azotemia - IV fluids #. DVT prophylaxis with Lovenox #.Code Status: Full - Date & Time Date: 07/27/18 Time: 20:44
[2018-07-27] MEDS ORDERED: Sod Polystyrene Sulf 15 gm/60 ml Susp PO ONE (23:12)
[2018-07-27 23:51] VITALS: RESP 18
[2018-07-28] MEDS: Sodium Chloride 0.9% 1,000 ML IV SCH ×3 (00:50→13:02)
[2018-07-28 05:30] LABS: HEMOGLOBIN 9.4 g/dL (12.0-18.0); MEAN CELL VOLUME 83.8 fl (80.0-94.0); MEAN CORPUSCULAR HEMOGLOBIN 28.6 pg (27.0-31.0); MEAN CORPUSCULAR HGB CONC 34.1 g/dL (33.0-37.0); RBC 3.29 Mil/uL (4.40-5.90); RED CELL DISTRIBUTION WIDTH 13.2 % (11.5-14.5); WHITE BLOOD COUNT 6.8 K/uL (4.8-10.8)
[2018-07-28 06:02] LABS: IRON 25 ug/dL (49-181)
[2018-07-28 06:12] LABS: % IRON SATURATION 11 % (20-55); TOTAL IRON BINDING CAPACITY 229 ug/dL (250-450)
[2018-07-28 06:21] LABS: BLOOD UREA NITROGEN 17 mg/dl (9-20); CALCIUM 8.5 mg/dL (8.4-10.2); GFR NON-AFRICAN AMERICAN > 60
--- NOTE | 2018-07-28 07:51 | CARD ---
APPROVED REPORT Date of service: 07/27/2018 EKG Measurement Heart [id number] <Conclusion> Sinus bradycardia Otherwise normal ECG
--- NOTE | 2018-07-28 08:49 | RAD ---
Date of service: 07/27/2018 HISTORY: possible admission COMPARISON: Chest radiographs 03/23/2017. FINDINGS: Angle of capture is apical lordotic. LUNGS: No active pulmonary disease. PLEURA: No significant pleural effusion identified, no pneumothorax apparent. CARDIOVASCULAR: Normal. OSSEOUS STRUCTURES: Post CABG pattern reiterated including median sternotomy and mediastinal surgical clips. VISUALIZED UPPER ABDOMEN: Normal. OTHER FINDINGS: None. IMPRESSION: No interval acute cardiopulmonary disease appreciated.
[2018-07-28] MEDS ORDERED: Enoxaparin 40 mg Syringe SC SCH (09:00)
--- NOTE | 2018-07-28 10:09 | CT ---
Date of service: 07/27/2018 PROCEDURE: CT HEAD WITHOUT CONTRAST. HISTORY: syncope COMPARISON: None available. TECHNIQUE: Axial computed tomography images were obtained through the head/brain without intravenous contrast. Radiation dose: Total exam DLP = 764.19 mGy-cm. This CT exam was performed using one or more of the following dose reduction techniques: Automated exposure control, adjustment of the mA and/or kV according to patient size, and/or use of iterative reconstruction technique. FINDINGS: HEMORRHAGE: No intracranial hemorrhage. BRAIN: Good corticomedullary differentiation is seen. Proportional, diffuse expansion of the ventriculosulcal and cisternal spaces is appreciated with white matter lucency compatible with diffuse cerebral atrophy and chronic microangiopathy. Two small chronic lacunes are seen at the right caudate head. No additional focal findings. No suspicious extra-axial fluid collection is identified and the midline brain anatomy appears grossly nonfocal as imaged. There is no mass effect throughout.No atrophy or chronic microvascular ischemic changes. VENTRICLES: Unremarkable. No hydrocephalus. CALVARIUM: No destructive bony lesion or displaced fracture identified including through the skullbase. PARANASAL SINUSES: Limited sinusitis changes are identified affecting left maxillary and multiple left ethmoid air cells. MASTOID AIR CELLS: Unremarkable as visualized. No inflammatory changes. OTHER FINDINGS: None. IMPRESSION: Minimal age related neuro degenerative findings are identified without acute changes by standard CT criteria. Two small chronic lacunes are seen in the right caudate head.
--- NOTE | 2018-07-28 10:14 | CT ---
Date of service: 07/27/2018 PROCEDURE: CT MAXILLOFACIAL BONES WITHOUT CONTRAST HISTORY: fall striking left zygoma COMPARISON: None available. TECHNIQUE: Contiguous axial CT images of the maxillofacial bones were obtained. Coronal and sagittal reformats were generated. Radiation dose: Total exam DLP = 773.93 mGy-cm. This CT exam was performed using one or more of the following dose reduction techniques: Automated exposure control, adjustment of the mA and/or kV according to patient size, and/or use of iterative reconstruction technique. FINDINGS: NASAL BONES: Unremarkable. ORBITS: Unremarkable. PARANASAL SINUSES/ MASTOIDS: Extensive left maxillary and multifocal left ethmoid sinusitis is appreciate with minimal inflammatory reaction in the medial inferior left frontal sinus. Rightward bony nasal septal deviation is appreciate without fracture. MAXILLA: Unremarkable. MANDIBLE/ TEMPOROMANDIBULAR JOINTS: Questionable cortical loss at the antral lateral right upper mandibular cortex margin. Remainder of the mandible is unremarkable. No fracture. SKULL BASE: Unremarkable. TEMPORAL BONES: Left otitis media and mastoid effusions identified incidentally. OTHER FINDINGS: None. IMPRESSION: 1. No fracture identified. Temporomandibular joints are intact without subluxation or dislocation. 2. Multifocal left ethmoid and maxillary sinusitis and minimally affects the left frontal sinus. 3. Left otitis media and mastoid effusions. 4. Questionable cortical erosion antral lateral right mandible as discussed above. Dental correlation advised.
--- NOTE | 2018-07-28 10:18 | CT ---
Date of service: 07/27/2018 PROCEDURE: CT Cervical Spine without contrast HISTORY: fall striking head COMPARISON: None available. TECHNIQUE: Axial computed tomography images were obtained of the cervical spine without the use of intravenous contrast. Coronal and sagittal reformatted images were created and reviewed. Radiation dose: Total exam DLP = 299.47 mGy-cm. This CT exam was performed using one or more of the following dose reduction techniques: Automated exposure control, adjustment of the mA and/or kV according to patient size, and/or use of iterative reconstruction technique. FINDINGS: VERTEBRAE: There is a mild reversal cervical curvature without fracture or spondylolisthesis appreciated. Multilevel spondylosis is moderate affecting the mid and inferior levels in particular as well as the upper thoracic spine. Multilevel facet joint degenerative arthropathy is identified primarily at mid and inferior levels as well. DISCS/SPINAL CANAL/NEURAL FORAMINA: At C4-5, there is a moderate central canal stenosis caused by a large generalized disc bulge. Mild right and moderate left degenerative neural foraminal stenoses are caused by uncovertebral and facet joint degenerative arthropathy. At C5-6, a disc osteophyte complex causes moderate central canal stenosis with moderate bilateral degenerative neural foraminal stenoses present as well. At C6-7, [id number] central canal stenosis results from a disc osteophyte complex and there is moderate right but superior left degenerative neural foraminal stenosis. PARASPINAL SOFT TISSUES: Unremarkable. OTHER FINDINGS: None. IMPRESSION: No fracture or spondylolisthesis although there is a mild reversal of cervical curvature. Multilevel degenerative neural foraminal and central canal stenoses are identified seen worst at C4-5 and C5-6 where moderate central canal stenoses are identified on degenerative basis as per above. No gross disc herniation. MRI may be utilized for further characterization if clinically warranted.
--- NOTE | 2018-07-28 12:00 | CP.PCM.CON ---
History of Present Illness - History of Present Illness History of Present Illness: This 68-year-old man who had required coronary bypass graft surgery following an acute myocardial infarction more than 5 years back and has come into the hospital after having suffered an abrupt blackout in the bathroom following micturition. He denies any premonitory symptoms prior to a syncopal episode. The patient denies any nausea vomiting or diarrhea preceding this event. He denies any loss of bladder or bowel control or biting of his lips. There is no prior episode of lightheadedness or near syncope or syncope. The patient denies any history of diabetes or congestive cardiac failure or recurrent bouts of chest pains. He denies any palpitations The patient had undergone coronary angiography in March 2017 during which functioning bypasses were found. The patient is fairly active and denies any effort related chest pain. He denies taking any medications for prostatism. Physical examination shows a middle aged pleasant man who is alert awake coherent afebrile and has received intravenous fluids overnight. His heart rate was 74 bpm regular and her telemetry did not show any significant arrhythmias. His blood pressure was 124/70 mmHg lying down and 110/70 mmHg standing up. The patient did not experience any sense of lightheadedness upon standing up. His pedal pulses were well felt and there were no carotid bruits. There was no pedal edema and his jugular venous pressure was not elevated. A scar of sternotomy was evident. The first and second heart sounds were normal. There was no murmur or gallop or rales. His electrocardiogram showed sinus rhythm with tiny R waves in lead 3. Review off his cardiogram couple of years back show evidence of an old inferior wall myocardial infarction. The echocardiogram shows borderline left ventricular systolic function with a depressed diastolic compliance. There was no significant valvulopathy. The lab data was noted. Impression: Syncopal episode possible orthostatic hypotension. The patient continues to demonstrate a very mild orthostatic change in his blood pressure after intravenous fluid replacement at 125 mL per hour overnight. The patient otherwise appears hemodynamically stable and no particular intervention need be undertaken at this juncture. Past Patient History - Past Medical History & Family History Past Medical History?: Yes - Past Social History Smoking Status: Never Smoked Chewing Tobacco Use: No Cigar Use: No Alcohol: None Home Situation {Lives}: With Family - CARDIAC Hx Atrial Fibrillation: Yes (?; unclear of diagnosis) Hx Hypercholesterolemia: Yes Hx Hypertension: Yes - PULMONARY Hx Respiratory Disorders: No - NEUROLOGICAL Hx Neurological Disorder: No - HEENT Hx HEENT Problems: No - RENAL Hx Chronic Kidney Disease: No - ENDOCRINE/METABOLIC Hx Endocrine Disorders: No - HEMATOLOGICAL/ONCOLOGICAL Hx Blood Disorders: No - INTEGUMENTARY Hx Dermatological Problems: No - MUSCULOSKELETAL/RHEUMATOLOGICAL Hx Musculoskeletal Disorders: No - GASTROINTESTINAL Hx Gastrointestinal Disorders: No - GENITOURINARY/GYNECOLOGICAL Hx Genitourinary Disorders: No - PSYCHIATRIC Hx Psychophysiologic Disorder: No Hx Substance Use: No - SURGICAL HISTORY Hx Coronary Artery Bypass Graft: Yes - ANESTHESIA Hx Anesthesia: Yes Hx Anesthesia Reactions: No Meds Allergies/Adverse Reactions: Allergies Allergy/AdvReac Type Severity Reaction Status Date / Time No Known Allergies Allergy Verified 07/27/18 17:55 - Medications Medications: Current Medications Amlodipine Besylate (Norvasc) 5 mg PO DAILY [facility] Last Admin: 07/28/18 09:00 Dose: 5 mg Aspirin (Ecotrin) 81 mg PO DAILY [facility] Last Admin: 07/28/18 08:59 Dose: 81 mg Cyanocobalamin (Vitamin B12 1000 Mcg Tab) 1,000 mcg PO DAILY [facility] Last Admin: 07/28/18 09:00 Dose: 1,000 mcg Docusate Sodium (Colace) 100 mg PO BID [facility] Last Admin: 07/28/18 08:59 Dose: 100 mg Ezetimibe (Zetia) 10 mg PO DAILY [facility] Last Admin: 07/28/18 09:01 Dose: 10 mg Enalapril Maleate (Vasotec) 10 mg PO DAILY [facility] Enoxaparin Sodium (Lovenox) 40 mg SC DAILY [facility] PRN Reason: Protocol Last Admin: 07/28/18 08:59 Dose: 40 mg Sodium Chloride (Sodium Chloride 0.9%) 1,000 mls @ 125 mls/hr IV .Q8H [facility] Stop: 07/28/18 20:30 Last Admin: 07/28/18 05:58 Dose: 125 mls/hr Iron Sucrose 100 mg/ Sodium (Chloride) 105 mls @ 105 mls/hr IVPB DAILY [facility] Metoprolol Tartrate (Lopressor) 50 mg PO DAILY [facility] Last Admin: 07/28/18 08:59 Dose: 50 mg Results - Vital Signs Recent Vital Signs: Last Vital Signs Temp 97.7 F 07/28/18 08:00 Pulse 63 07/28/18 09:00 Resp 18 07/28/18 08:00 BP 107/56 L 07/28/18 09:00 Pulse Ox 94 L 07/28/18 08:00 - Labs Result Diagrams: 07/28/18 04:25 07/28/18 04:25 Labs: Laboratory Results - last 24 hr 07/27/18 07/27/18 07/27/18 19:01 19:01 19:01 WBC 10.6 D RBC 3.75 L Hgb 10.7 L Hct 31.2 L MCV 83.4 MCH 28.5 MCHC 34.1 RDW 13.4 Plt Count 231 MPV 9.1 Neut % (Auto) 80.6 H Lymph % (Auto) 10.2 L Scott % (Auto) 8.5 Eos % (Auto) 0.3 Baso % (Auto) 0.4 Neut # (Auto) 8.5 H Lymph # (Auto) 1.1 Scott # (Auto) 0.9 H Eos # (Auto) 0.0 Baso # (Auto) 0.0 PT 13.0 INR 1.2 APTT 25.4 L pO2 VBG pH VBG pCO2 VBG HCO3 VBG Total CO2 VBG O2 Sat (Calc) VBG Base Excess VBG Potassium Glucose Lactate FiO2 Sodium 141 Potassium 5.7 H Chloride 109 H Carbon Dioxide 24 Anion Gap 14 BUN 17 Creatinine 1.6 H Est GFR ( Amer) 52 Est GFR (Non-Af Amer) 43 Random Glucose 106 Calcium 9.4 Iron TIBC % Saturation Total Bilirubin 0.7 AST 34 ALT 47 Alkaline Phosphatase 179 H Troponin I < 0.0120 NT-Pro-B Natriuret Pep 352 Total Protein 7.6 Albumin 4.2 Globulin 3.4 Albumin/Globulin Ratio 1.2 Vitamin B12 Venous Blood Potassium Urine Color Urine Clarity Urine pH Ur Specific [place] Urine Protein Urine Glucose (UA) Urine Ketones Urine Blood Urine Nitrate Urine Bilirubin Urine Urobilinogen Ur Leukocyte Esterase Urine RBC (Auto) Urine Microscopic WBC Ur Squamous Epith Cells Hyaline Casts 07/27/18 07/27/18 07/28/18 19:08 19:09 04:25 WBC RBC Hgb Hct MCV MCH MCHC RDW Plt Count MPV Neut % (Auto) Lymph % (Auto) Scott % (Auto) Eos % (Auto) Baso % (Auto) Neut # (Auto) Lymph # (Auto) Scott # (Auto) Eos # (Auto) Baso # (Auto) PT INR APTT pO2 19 L VBG pH 7.36 VBG pCO2 44 VBG HCO3 22.4 VBG Total CO2 26.3 VBG O2 Sat (Calc) 36.0 L VBG Base Excess -0.8 L VBG Potassium 5.5 H Glucose 106 Lactate 1.0 FiO2 21.0 Sodium 138.0 Potassium Chloride 108.0 H Carbon Dioxide Anion Gap BUN Creatinine Est GFR ( Amer) Est GFR (Non-Af Amer) Random Glucose Calcium Iron 25 L TIBC 229 L % Saturation 11 L Total Bilirubin AST ALT Alkaline Phosphatase Troponin I NT-Pro-B Natriuret Pep Total Protein Albumin Globulin Albumin/Globulin Ratio Vitamin B12 Venous Blood Potassium 5.5 H Urine Color Yellow Urine Clarity Clear Urine pH 6.0 Ur Specific [place] 1.013 Urine Protein Negative Urine Glucose (UA) Neg Urine Ketones Negative Urine Blood Negative Urine Nitrate Negative Urine Bilirubin Negative Urine Urobilinogen 0.2-1.0 Ur Leukocyte Esterase Neg Urine RBC (Auto) 2 Urine Microscopic WBC < 1 Ur Squamous Epith Cells < 1 Hyaline Casts 11-20 H 07/28/18 07/28/18 04:25 04:25 WBC 6.8 RBC 3.29 L Hgb 9.4 L Hct 27.6 L MCV 83.8 MCH 28.6 MCHC 34.1 RDW 13.2 Plt Count 204 MPV Neut % (Auto) Lymph % (Auto) Scott % (Auto) Eos % (Auto) Baso % (Auto) Neut # (Auto) Lymph # (Auto) Scott # (Auto) Eos # (Auto) Baso # (Auto) PT INR APTT pO2 VBG pH VBG pCO2 VBG HCO3 VBG Total CO2 VBG O2 Sat (Calc) VBG Base Excess VBG Potassium Glucose Lactate FiO2 Sodium 141 Potassium 3.9 Chloride 113 H Carbon Dioxide 24 Anion Gap 8 L BUN 17 Creatinine 1.2 Est GFR ( Amer) > 60 Est GFR (Non-Af Amer) > 60 Random Glucose 83 Calcium 8.5 Iron TIBC % Saturation Total Bilirubin AST ALT Alkaline Phosphatase Troponin I NT-Pro-B Natriuret Pep Total Protein Albumin Globulin Albumin/Globulin Ratio Vitamin B12 870 Venous Blood Potassium Urine Color Urine Clarity Urine pH Ur Specific [place] Urine Protein Urine Glucose (UA) Urine Ketones Urine Blood Urine Nitrate Urine Bilirubin Urine Urobilinogen Ur Leukocyte Esterase Urine RBC (Auto) Urine Microscopic WBC Ur Squamous Epith Cells Hyaline Casts
--- NOTE | 2018-07-28 12:07 | CARD ---
APPROVED REPORT Date of service: 07/28/2018 EXAM: Two-dimensional and M-mode echocardiogram with Doppler and color Doppler. Other Information Quality : GoodRhythm : NSR INDICATION Syncope Surgery/Intervention CABD DIMENSIONS IVSd1.09 (0.7-1.1cm)LVDd4.78 (3.9-5.9cm) LVOT Diameter1.75 (1.8-2.4cm)PWd0.85 (0.7-1.1cm) IVSs0.99 (0.8-1.2cm)LVDs3.43 (2.5-4.0cm) FS (%) 28.3 %PWs1.17 (0.8-1.2cm) M-Mode DIMENSIONS Left Atrium (MM)5.00 (2.5-4.0cm)IVSd0.74 (0.7-1.1cm) Aortic Root3.29 (2.2-3.7cm)LVDd6.38 (4.0-5.6cm) Aortic Cusp Exc.2.12 (1.5-2.0cm)PWd0.88 (0.7-1.1cm) IVSs1.24 cmFS (%) 36 % LVDs4.09 (2.0-3.8cm)PWs1.09 cm Mitral Valve MV E Sibcwqso33.4cm/sMV DECEL [id number] A Uzrlnmmy25.3cm/s MV [id number]/A ratio1.1MVA (PHT)3.21cm2 TDI Lateral E' Peak V15.56cm/sMedial E' Peak V9.78cm/sE/Lateral E'4.5 E/Medial E'7.1 Pulmonary Valve PV Peak Xnaziumx12.3cm/s LEFT VENTRICLE The left ventricle is normal size. There is normal left ventricular wall thickness. Left ventricle systolic function is borderline. The Ejection Fraction is 45-50%. Borderline generalised wall motion Transmitral Doppler flow pattern is Grade I-abnormal relaxation pattern. RIGHT VENTRICLE The right ventricle is normal size. There is normal right ventricular wall thickness. The right ventricular systolic function is normal. ATRIA The left atrium size is normal. The right atrium size is normal. AORTIC VALVE The aortic valve is normal in structure. No aortic regurgitation is present. There is no aortic valvular stenosis. MITRAL VALVE The mitral valve is normal in structure. There is no evidence of mitral valve prolapse. There is no mitral valve stenosis. Mitral regurgitation is trace to mild. TRICUSPID VALVE The tricuspid valve is normal in structure. There is no tricuspid valve regurgitation noted. PULMONIC VALVE The pulmonary valve is normal in structure. There is trace pulmonic valvular regurgitation. GREAT VESSELS The aortic root is normal in size. The IVC is normal in size and collapses >50% with inspiration. PERICARDIAL EFFUSION The pericardium appears normal. <Conclusion> The left ventricle is normal size. There is normal left ventricular wall thickness. Borderline generalised wall motion Left ventricle systolic function is borderline. The Ejection Fraction is 45-50%. Transmitral Doppler flow pattern is Grade I-abnormal relaxation pattern.
[2018-07-28 12:26] VITALS: BP 100/60; PULSE 52; TEMP 97.9; O2SAT 97
[2018-07-28 12:49] LABS: FOLATE 7.7 ng/mL
--- NOTE | 2018-07-28 13:01 | CP.PCM.DIS ---
Provider - Provider Date of Admission: 07/27/18 20:22 Attending physician: Manjinder Hendrix Time Spent in preparation of Discharge (in minutes): 35 Diagnosis - Discharge Diagnosis (1) Orthostatic hypotension Status: Acute (2) Syncope due to orthostatic hypotension Status: Acute (3) Anemia Status: Chronic Comment: asymptomatic anemia (4) HTN (hypertension) Status: Chronic (5) Coronary artery disease Status: Chronic Hospital Course - Lab Results Lab Results: Most Recent Lab Values WBC 6.8 K/uL (4.8-10.8) 07/28/18 04:25 RBC 3.29 Mil/uL (4.40-5.90) L 07/28/18 04:25 Hgb 9.4 g/dL (12.0-18.0) L 07/28/18 04:25 Hct 27.6 % (35.0-51.0) L 07/28/18 04:25 MCV 83.8 fl (80.0-94.0) 07/28/18 04:25 MCH 28.6 pg (27.0-31.0) 07/28/18 04:25 MCHC 34.1 g/dL (33.0-37.0) 07/28/18 04:25 RDW 13.2 % (11.5-14.5) 07/28/18 04:25 Plt Count 204 K/uL (130-400) 07/28/18 04:25 MPV 9.1 fl (7.2-11.7) 07/27/18 19:01 Neut % (Auto) 80.6 % (50.0-75.0) H 07/27/18 19:01 Lymph % (Auto) 10.2 % (20.0-40.0) L 07/27/18 19:01 [place] % (Auto) 8.5 % (0.0-10.0) 07/27/18 19:01 Eos % (Auto) 0.3 % (0.0-4.0) 07/27/18 19:01 Baso % (Auto) 0.4 % (0.0-2.0) 07/27/18 19:01 Neut # (Auto) 8.5 K/uL (1.8-7.0) H 07/27/18 19:01 Lymph # (Auto) 1.1 K/uL (1.0-4.3) 07/27/18 19:01 [place] # (Auto) 0.9 K/uL (0.0-0.8) H 07/27/18 19:01 Eos # (Auto) 0.0 K/uL (0.0-0.7) 07/27/18 19:01 Baso # (Auto) 0.0 K/uL (0.0-0.2) 07/27/18 19:01 PT 13.0 Seconds (9.8-13.1) 07/27/18 19: INR 1.2 07/27/18 19:01 APTT 25.4 Seconds (25.6-37.1) L 07/27/18 19:01 pO2 19 mm/Hg (30-55) L 07/27/18 19:09 VBG pH 7.36 (7.32-7.43) 07/27/18 19:09 VBG pCO2 44 mmHg (40-60) 07/27/18 19:09 VBG HCO3 22.4 mmol/L 07/27/18 19:09 VBG Total CO2 26.3 mmol/L (22-28) 07/27/18 19:09 VBG O2 Sat (Calc) 36.0 % (40-65) L 07/27/18 19:09 VBG Base Excess -0.8 mmol/L (0.0-2.0) L 07/27/18 19:09 VBG Potassium 5.5 mmol/L (3.6-5.2) H 07/27/18 19:09 Sodium 138.0 mmol/L (132-148) 07/27/18 19:09 Chloride 108.0 mmol/L (98-107) H 07/27/18 19:09 Glucose 106 mg/dL (75-110) 07/27/18 19:09 Lactate 1.0 mmol/L (0.7-2.1) 07/27/18 19:09 FiO2 21.0 % 07/27/18 19:09 Sodium 141 mmol/l (132-148) 07/28/18 04:25 Potassium 3.9 MMOL/L (3.6-5.0) 07/28/18 04:25 Chloride 113 mmol/L (98-107) H 07/28/18 04:25 Carbon Dioxide 24 mmol/L (22-30) 07/28/18 04:25 Anion Gap 8 (10-20) L 07/28/18 04:25 BUN 17 mg/dl (9-20) 07/28/18 04:25 Creatinine 1.2 mg/dl (0.8-1.5) 07/28/18 04:25 Est GFR ( Amer) > 60 07/28/18 04:25 Est GFR (Non-Af Amer) > 60 07/28/18 04:25 Random Glucose 83 mg/dL (75-110) 07/28/18 04:25 Calcium 8.5 mg/dL (8.4-10.2) 07/28/18 04:25 Iron 25 ug/dL (49-181) L 07/28/18 04:25 TIBC 229 ug/dL (250-450) L 07/28/18 04:25 % Saturation 11 % (20-55) L 07/28/18 04:25 Total Bilirubin 0.7 mg/dl (0.2-1.3) 07/27/18 19:01 AST 34 U/L (17-59) 07/27/18 19:01 ALT 47 U/L (21-72) 07/27/18 19:01 Alkaline Phosphatase 179 U/L (38-126) H 07/27/18 19:01 Troponin I < 0.0120 ng/mL (0.00-0.120) 07/27/18 19:01 NT-Pro-B Natriuret Pep 352 pg/ml (0-900) 07/27/18 19:01 Total Protein 7.6 G/DL (6.3-8.2) 07/27/18 19:01 Albumin 4.2 g/dL (3.5-5.0) 07/27/18 19:01 Globulin 3.4 gm/dL (2.2-3.9) 07/27/18 19:01 Albumin/Globulin Ratio 1.2 (1.0-2.1) 07/27/18 19:01 Vitamin B12 870 pg/mL (239-931) 07/28/18 04:25 Folate 7.7 ng/mL 07/28/18 04:25 Venous Blood Potassium 5.5 mmol/L (3.6-5.2) H 07/27/18 19:09 Urine Color Yellow (YELLOW) 07/27/18 19:08 Urine Clarity Clear (Clear) 07/27/18 19:08 Urine pH 6.0 (5.0-8.0) 07/27/18 19:08 Ur Specific [place] 1.013 (1.003-1.030) 07/27/18 19:08 Urine Protein Negative mg/dL (NEGATIVE) 07/27/18 19:08 Urine Glucose (UA) Neg mg/dL (Normal) 07/27/18 19:08 Urine Ketones Negative mg/dL (NEGATIVE) 07/27/18 19:08 Urine Blood Negative (NEGATIVE) 07/27/18 19:08 Urine Nitrate Negative (NEGATIVE) 07/27/18 19:08 Urine Bilirubin Negative (NEGATIVE) 07/27/18 19:08 Urine Urobilinogen 0.2-1.0 mg/dL (0.2-1.0) 07/27/18 19:08 Ur Leukocyte Esterase Neg [place]/uL (Negative) 07/27/18 19:08 Urine RBC (Auto) 2 /hpf (0-3) 07/27/18 19:08 Urine Microscopic WBC < 1 /hpf (0-5) 07/27/18 19:08 Ur Squamous Epith Cells < 1 /hpf (0-5) 07/27/18 19:08 Hyaline Casts 11-20 /hpf (0-2) H 07/27/18 19:08 - Hospital Course Hospital Course: 68 years old male with hx of HTN, CAD s/p CAGB admitted on 07/27/18 with a syncopal episode, patient had CT Head Without Intravenous Contrast reports: Minimal age related neuro degenerative findings are identified w/o acute changes by standard CT criteria. Two small chronic lacunes are seen in the right caudate head, EKG unremarkable, CT of cervical spine unremarkable, Echocardiogram done reports LV normal size, LV systolic function WNL, EF 45-50 % . patient found to have anemia with hb 10.7, The patient also was evaluated by cardiology Dr Armando Dean, as per cardiology impression patient demonstrated a mild orthostatic changes and syncopal episode most likely 2/2 orthostostatic, patient cleared to be D/C by cardiology standpoint of view. During hospital course fluid were replaced. Patient upon D/C home stable, denies CP, ROB, dizziness, VS WNL, palpitations, N/V/D. Patient instructed to f/u with PMD in 2 to 3 days. ED return instruction given. D/C Diagnosis: Orthostatic hypotension, asymptomatic anemia. MEDS on DC see prescription section New Med Ferrous S 325 PO QD Continue HOme meds Enalapril 10 mg PO QD (adjusted to half dose 2/2 orthostatic hypotension) Discharge Exam - Head Exam Head Exam: NORMOCEPHALIC - Eye Exam Eye Exam: EOMI, PERRL - ENT Exam ENT Exam: Mucous Membranes Moist - Respiratory Exam Respiratory Exam: Clear to PA & Lateral - Cardiovascular Exam Cardiovascular Exam: REGULAR RHYTHM, +S1, +S2 - GI/Abdominal Exam GI & Abdominal Exam: Normal Bowel Sounds, Soft. absent: Tenderness - Neurological Exam Neurological exam: Alert, CN II-XII Intact, Oriented x3 - Psychiatric Exam Psychiatric exam: Normal Affect, Normal Mood - Skin Skin Exam: Normal Color, Warm Discharge Plan - Discharge Medications Prescriptions: Enalapril Maleate [Vasotec] 10 mg PO DAILY #30 tab Ferrous Sulfate 325 mg PO DAILY #30 tablet - Follow Up Plan Condition: FAIR Disposition: HOME/ ROUTINE Instructions: Anemia Caused by Low Iron, Adult (DC), Orthostatic Hypotension ( DC) Additional Instructions: Follow up with your PMD Dr Marlon Moreira in 2 to 3 days. Referrals: Marlon Moreira MD [Staff Provider] - Bernarda Sampson MD [Staff Provider] -
== END 2018-07-28 15:40 | disposition home or self-care (01) ==
LOC: H.ER 17:51 → H.ERHOLD 20:22 → H.TEL 23:14
PROVIDERS: ADMIT Internal Medicine; ATTEND Internal Medicine
DX: I95.1 Orthostatic hypotension (principal); I10 Essential (primary) hypertension; I25.10 Atherosclerotic heart disease of native coronary artery without angina pectoris; Z95.1 Presence of aortocoronary bypass graft; D64.9 Anemia, unspecified; E87.5 Hyperkalemia; R79.89 Other specified abnormal findings of blood chemistry; I25.2 Old myocardial infarction; E78.00 Pure hypercholesterolemia, unspecified; J32.0 Chronic maxillary sinusitis; E78.5 Hyperlipidemia, unspecified; S01.411A Laceration without foreign body of right cheek and temporomandibular area, initial encounter; W18.39XA Other fall on same level, initial encounter
CPT/HCPCS: 36415; 70450; 70486; 71045; 72125; 80048; 80053; 81003; 82607; 82746; 82803; 83540; 83550; 83880; 84484; 85025; 85027; 85610; 85730; 93005; 93306; 99285; G0378; J1650; J1756; J7030

== ENCOUNTER 2018-09-17 11:17 | Emergency (ER) | payer MEDICARE, MEDICAID ==
[2018-09-17 11:17] VITALS: BMI 24.3
[2018-09-17 11:21] VITALS: RESP 18; TEMP 97.9
--- NOTE | 2018-09-17 12:02 | ED PDOC ---
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 Denies CP, SOB, ROB, paresthesias, weakness. Had similar episode in past and dx with dehydration. Past Medical History Reviewed: Nursing Documentation, Vital Signs Vital Signs: Last Vital Signs Temp 97.9 F 09/17/18 11:20 Pulse 51 L 09/17/18 11:20 Resp 18 09/17/18 11:20 BP 106/63 09/17/18 11:20 Pulse Ox 100 09/17/18 11:20 - Medical History PMH: Atrial Fibrillation (?; unclear of diagnosis), HTN, Hypercholesterolemia Denies: HIV, Chronic Kidney Disease - Surgical History Surgical History: CABG - Family History Family History: States: Unknown Family Hx - Living Arrangements Living Arrangements: With Family - Social History Current smoker - smoking cessation education provided: No Alcohol: None - Immunization History Hx Tetanus Toxoid Vaccination: No Hx Influenza Vaccination: No Hx Pneumococcal Vaccination: No - Home Medications Home Medications: Ambulatory Orders Medication Instructions Recorded Aspirin [Adult Low Dose Aspirin EC] 81 mg PO DAILY 03/23/17 Ezetimibe [Zetia] 10 mg PO DAILY 03/23/17 Cyanocobalamin (Vitamin B-12) 1,000 mg PO DAILY 07/27/18 [Vitamin B-12] Docusate Sodium [Dulcolax Stool 300 mg PO HS PRN MDD 300 MG 07/27/18 Softener] Metoprolol Tartrate [Lopressor] 50 mg PO BID 07/27/18 amLODIPine [Norvasc] 5 mg PO DAILY 07/27/18 Enalapril Maleate [Vasotec] 10 mg PO DAILY #30 tab 07/28/18 Ferrous Sulfate 325 mg PO DAILY #30 tablet 07/28/18 Meclizine [Meclizine*] 25 mg PO Q6 PRN #20 tab 09/17/18 - Allergies Allergies/Adverse Reactions: Allergies Allergy/AdvReac Type Severity Reaction Status Date / Time No Known Allergies Allergy Verified 07/27/18 17:55 Review of Systems Constitutional: Negative for: Fever, Chills Eyes: Negative for: Vision Change Cardiovascular: Negative for: Chest Pain, Palpitations Respiratory: Negative for: Cough, Shortness of Breath Gastrointestinal: Positive for: Nausea, Vomiting. Negative for: Abdominal Pain, Diarrhea Genitourinary Male: Negative for: Dysuria, Hematuria Musculoskeletal: Negative for: Neck Pain Skin: Negative for: Rash, Lesions Neurological: Positive for: Dizziness. Negative for: Weakness, Numbness, I ncoordination, Change in Speech, Confusion, Seizures, Altered Mental Status, Headache Physical Exam - Reviewed Nursing Documentation Reviewed: Yes Vital Signs Reviewed: Yes - Physical Exam Appears: Positive for: Well, No Acute Distress Head Exam: Positive for: ATRAUMATIC, NORMAL INSPECTION Skin: Positive for: Normal Color, Warm, Dry Eye Exam: Positive for: Normal appearance, EOMI, PERRL. Negative for: Nystagmus Neck: Positive for: Normal, Painless ROM, Supple Cardiovascular/Chest: Positive for: Regular Rate, Rhythm Respiratory: Positive for: Normal Breath Sounds. Negative for: Rales, Rhonchi, Wheezing Gastrointestinal/Abdominal: Positive for: Normal Exam Extremity: Positive for: Normal ROM Neurologic/Psych: Positive for: Alert, sports specialist II-XII, Oriented, Cerebellar Tests (WNL). Negative for: Motor/Sensory Deficits, Aphasia, Facial Droop - Laboratory Results Result Diagrams: 09/17/18 12:15 09/17/18 12:15 - ECG Interpretation Of ECG: Sinus hong @ 51, Q waves inferior waves. O2 Sat by Pulse Oximetry: 100 Pulse Ox Interpretation: Normal Medical Decision Making Medical Decision Makin yo male with vertigo. - labs - EKG - CXR - CT head - [place] - [place] Accession No. : [id number] Patient Name / ID : CICI VALLADARES / [id number] Exam Date : 09/17/2018 12:29:50 ( Approved ) Study Comment : Sex / Age : M / 68Y Creator : Evaristo Morales MD Dictator : Evaristo Morales MD Managed Care Director : Estimator Lumber : Evaristo Morales MD Approver2 : Report Date : 09/17/2018 12:59:07 My Comment : Date of service: 09/17/2018 PROCEDURE: CT HEAD WITHOUT CONTRAST. HISTORY: Vertigo COMPARISON: CT head dated 07/27/2018. TECHNIQUE: Axial computed tomography images were obtained through the head/brain without intravenous contrast. Radiation dose: Total exam DLP = 790.18 mGy-cm. This CT exam was performed using one or more of the following dose reduction techniques: Automated exposure control, adjustment of the mA and/or kV according to patient size, and/or use of iterative reconstruction technique. FINDINGS: HEMORRHAGE: No intracranial hemorrhage. BRAIN: No mass effect or edema. Atrophy. Chronic microvascular ischemic changes. Right basal ganglia lacunar infarction. VENTRICLES: Unremarkable. No hydrocephalus. CALVARIUM: Unremarkable. PARANASAL SINUSES: Unremarkable as visualized. No significant inflammatory changes. MASTOID AIR CELLS: Left mastoid air cell opacification. OTHER FINDINGS: None. IMPRESSION: No acute intracranial pathology. Age-related changes. Left mastoid air cell opacification. Upon review of old records, EKG showed sinus hong @ 56 on 07/27/18, no changes. Dr. Moreira returned call after patient discharged, agrees with workup and plan. Disposition - Clinical Impression Clinical Impression: Vertigo - Disposition Referrals: Marlon Moreira MD [Family Provider] - Disposition: Routine/Home Disposition Time: 15:41 Condition: STABLE Prescriptions: Meclizine [Meclizine*] 25 mg PO Q6 PRN #20 tab PRN Reason: Dizziness Instructions: Vertigo (a Type of Dizziness) Forms: [employer] (Urdu) Print Language: [place]ET[place]ESE
[2018-09-17 12:26] LABS: BASO # 0.1 K/uL (0.0-0.2); BASO % 0.9 % (0.0-2.0); EOS # 0.2 K/uL (0.0-0.7); EOS % 2.4 % (0.0-4.0); HEMOGLOBIN 11.9 g/dL (12.0-18.0); LYMPH # 1.2 K/uL (1.0-4.3); LYMPH % 18.3 % (20.0-40.0); MEAN CELL VOLUME 83.6 fl (80.0-94.0); MEAN CORPUSCULAR HEMOGLOBIN 29.1 pg (27.0-31.0); MEAN CORPUSCULAR HGB CONC 34.7 g/dL (33.0-37.0); MEAN PLATELET VOLUME 9.2 fl (7.2-11.7); MONO # 0.6 K/uL (0.0-0.8); NEUT # 4.4 K/uL (1.8-7.0); NEUT % 69.4 % (50.0-75.0); NRBC % 0.1 % (0.0-0.0); RBC 4.1 Mil/uL (4.40-5.90); RED CELL DISTRIBUTION WIDTH 13.5 % (11.5-14.5); WHITE BLOOD COUNT 6.4 K/uL (4.8-10.8)
[2018-09-17 12:38] LABS: INR 1.1; PROTHROMBIN TIME 12.1 Seconds (9.8-13.1)
[2018-09-17 12:41] LABS: PARTIAL THROMBOPLASTIN TIME 22.7 Seconds (25.6-37.1)
[2018-09-17 12:45] LABS: SQUAMOUS EPITHIAL 1 /hpf (0-5); URINE BACTERIA RARE (<OCC); URINE BILIRUBIN NEGATIVE (NEGATIVE); URINE BLOOD NEGATIVE (NEGATIVE); URINE CLARITY SLIGHTY-CLOUDY (Clear); URINE COLOR YELLOW (YELLOW); URINE GLUCOSE (UA) NEG (Normal); URINE LEUKOCYTE ESTERASE NEG Leu/uL (Negative); URINE PROTEIN NEGATIVE (NEGATIVE); URINE UROBILINOGEN 0.2-1.0 mg/dL (0.2-1.0)
[2018-09-17 12:47] LABS: ALB/GLOB RATIO 1.1 (1.0-2.1); ALBUMIN 3.9 g/dL (3.5-5.0); ALT/SGPT 54 U/L (21-72); AST/SGOT 46 U/L (17-59); BLOOD UREA NITROGEN 13 mg/dl (9-20); CALCIUM 9.4 mg/dL (8.4-10.2); GFR NON-AFRICAN AMERICAN > 60
--- NOTE | 2018-09-17 13:02 | CT ---
Date of service: 09/17/2018 PROCEDURE: CT HEAD WITHOUT CONTRAST. HISTORY: Vertigo COMPARISON: CT head dated 07/27/2018. TECHNIQUE: Axial computed tomography images were obtained through the head/brain without intravenous contrast. Radiation dose: Total exam DLP = 790.18 mGy-cm. This CT exam was performed using one or more of the following dose reduction techniques: Automated exposure control, adjustment of the mA and/or kV according to patient size, and/or use of iterative reconstruction technique. FINDINGS: HEMORRHAGE: No intracranial hemorrhage. BRAIN: No mass effect or edema. Atrophy. Chronic microvascular ischemic changes. Right basal ganglia lacunar infarction. VENTRICLES: Unremarkable. No hydrocephalus. CALVARIUM: Unremarkable. PARANASAL SINUSES: Unremarkable as visualized. No significant inflammatory changes. MASTOID AIR CELLS: Left mastoid air cell opacification. OTHER FINDINGS: None. IMPRESSION: No acute intracranial pathology. Age-related changes. Left mastoid air cell opacification
--- NOTE | 2018-09-17 15:42 | RAD ---
Date of service: 09/17/2018 HISTORY: Vertigo COMPARISON: Chest radiograph dated 07/27/2018 TECHNIQUE: Chest PA and lateral FINDINGS: LUNGS: No active pulmonary disease. PLEURA: No significant pleural effusion identified. No pneumothorax apparent. CARDIOVASCULAR: Prior sternotomy with sternal wires and surgical clips redemonstrated. Aortic atherosclerotic calcifications. Cardiomediastinal silhouette stably prominent. OSSEOUS STRUCTURES: Unchanged. VISUALIZED UPPER ABDOMEN: Normal. OTHER FINDINGS: None. IMPRESSION: No active disease.
[2018-09-17 16:15] VITALS: BP 106/62; PULSE 56
[2018-09-17 16:48] VITALS: O2SAT 100
--- NOTE | 2018-09-17 21:49 | CARD ---
APPROVED REPORT Date of service: 09/17/2018 EKG Measurement Heart [id number] <Conclusion> Sinus bradycardia Inferior infarct, age undetermined Abnormal ECG
== END 2018-09-17 16:16 | disposition home or self-care (01) ==
LOC: H.ER 11:17
DX: R42 Dizziness and giddiness (principal)
CPT/HCPCS: 70450; 71046; 80053; 81003; 82948; 84484; 85025; 85610; 85730; 93005; 96374; 99285; J2405